=== PATIENT | male | born 2005 | race Caucasian/White ===

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

== ENCOUNTER 2024-01-08 18:29 | Emergency (ER) | payer OTHER ==
[2024-01-08 18:49] VITALS: TEMP 98
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
--- NOTE | 2024-01-08 20:43 | CT ---
EXAMINATION TYPE: CT brain wo con CT DLP: 1233.4 mGycm, Automated exposure control for dose reduction was used. DATE OF EXAM: 01/08/2024 8:22 PM COMPARISON: None. CLINICAL INDICATION:Male, 18 years old with history of headache after fall. TECHNIQUE: Brain: Axial CT images of the brain were obtained with coronal and sagittal reformats created and rev iewed. Contrast used: None. Oral contrast used: None. FINDINGS: Brain: Extra-axial spaces: No abnormal extra-axial fluid collections. Ventricular system: Within normal limits Cerebral parenchyma: No acute intraparenchymal hemorrhage or mass effect. The martini-white junction is well differentiated. Cerebellum: Unremarkable. Mass effect: No evidence of midline shift. Intracranial vasculature: unremarkable Soft tissues: Normal. Calvarium/osseous structures: No depressed skull fracture. Paranasal sinuses and mastoid air cells: Clear. Visualized orbits: Orbital contents are intact. IMPRESSION: No acute intracranial process.
[2024-01-09 02:20] VITALS: RESP 16
[2024-01-09 02:23] VITALS: BP 121/68; PULSE 81
== END 2024-01-09 00:01 | disposition home or self-care (01) ==
LOC: EC 18:29
DX: S06.0XAA Concussion with loss of consciousness status unknown, initial encounter (principal); Z88.8 Allergy status to other drugs, medicaments and biological substances; W01.198A Fall on same level from slipping, tripping and stumbling with subsequent striking against other object, initial encounter
CPT/HCPCS: 70450; 99284

== ENCOUNTER 2024-07-19 19:30 | Inpatient (IN) | payer MEDICAID, OTHER ==
--- NOTE | 2024-07-19 20:25 | ED ---
Psych HPI - General Chief Complaint: Psychiatric Symptoms Stated Complaint: Petitioned,Mental Health Time Seen by Provider: 07/19/24 20:24 Source: patient, police, RN notes reviewed, old records reviewed Mode of arrival: ambulatory Limitations: no limitations - History of Present Illness Initial Comments: This is a 18-year-old male acute psychosis severe depression history of bipolar patient is making homicidal statements and sharing those messages MD Complaint: suicidal ideation (Homicidal thoughts), feels depressed -: days(s) Associated Psychiatric Symptoms: homicidal ideation Quality: constant Improves With: none Worsens With: none Associated Symptoms: denies other symptoms Treatments Prior to Arrival: placed on mental health hold - Related Data Previous Rx's Medication Instructions Recorded Amoxic-Pot Clav 875-125Mg 1 each PO Q12HR 4 Days #8 tab 07/27/24 [Augmentin 875-125] Ibuprofen [Motrin] 600 mg PO Q6HR PRN tab 07/27/24 hydrOXYzine pamoate [Vistaril] 50 mg PO DAILY PRN 15 Days #30 cap 07/27/24 prednisoLONE ACETATE 1% OPHTH 2 drops BOTH EYES QID ml 07/27/24 [Pred Forte 1%] risperiDONE [Uzedy] 50 mg SQ QMONTHLY #1 each 07/27/24 traZODone HCL [Desyrel] 50 mg PO HS PRN 30 Days #30 tab 07/27/24 Allergies Allergy/AdvReac Type Severity Reaction Status Date / Time divalproex sodium Allergy Unknown Verified 07/20/24 12:46 [From Depakote] lorazepam [From Ativan] Allergy Unknown Verified 07/20/24 12:46 quetiapine [From Seroquel] Allergy Unknown Verified 07/20/24 12:46 Review of Systems ROS Statement: Those systems with pertinent positive or pertinent negative responses have been documented in the HPI. ROS Other: All systems not noted in ROS Statement are negative. Past Medical History Additional Past Medical History / Comment(s): enuresis bipolar, autism History of Any Multi-Drug Resistant Organisms: None Reported Additional Past Surgical History / Comment(s): Wart removal,cait carpal tunnel, achilles tendon Past Psychological History: ADD/ADHD, Bipolar Smoking Status: Never smoker Past Alcohol Use History: None Reported Past Drug Use History: None Reported General Exam Limitations: no limitations General appearance: alert, in no apparent distress, anxious Head exam: Present: atraumatic, normocephalic, normal inspection Eye exam: Present: normal appearance, PERRL, EOMI. Absent: scleral icterus, conjunctival injection, periorbital swelling ENT exam: Present: normal exam, mucous membranes moist Neck exam: Present: normal inspection. Absent: tenderness, meningismus, lymphadenopathy Respiratory exam: Present: normal lung sounds bilaterally. Absent: respiratory distress, wheezes, rales, rhonchi, stridor Cardiovascular Exam: Present: regular rate, normal rhythm, normal heart sounds. Absent: systolic murmur, diastolic murmur, rubs, gallop, clicks GI/Abdominal exam: Present: soft, normal bowel sounds. Absent: distended, tenderness, guarding, rebound, rigid Extremities exam: Present: normal inspection, full ROM, normal capillary refill. Absent: tenderness, pedal edema, joint swelling, calf tenderness Back exam: Present: normal inspection Neurological exam: Present: alert, oriented X3, CN II-XII intact Psychiatric exam: Present: normal affect, normal mood Skin exam: Present: warm, dry, intact, normal color. Absent: rash Course Vital Signs 07/19/24 07/19/24 07/20/24 19:52 20:27 02:00 Temperature 98.4 F 98.4 F 97.2 F L Pulse Rate 62 74 Pulse Rate [ 85 Trekking Guide ] Respiratory 16 14 16 Rate Blood Pressure 186/47 136/70 Blood Pressure 136/73 [Right Arm] O2 Sat by Pulse 100 99 98 Oximetry - Reevaluation(s) Reevaluation #1: Medical records reviewed Reevaluation #2: Medically cleared for psychiatric evaluation Reevaluation #3: Was pt. sent in by a medical professional or institution (, PA, CLERK TELEGRAPH SERVICE, urgent care, hospital, or intermediate...) When possible be specific @ -no Did you speak to anyone other than the patient for history (EMS, parent, family, police, friend...)? What history was obtained from this source @ -no Did you review nursing and triage notes (agree or disagree)? Why? @ -agree Are old charts reviewed (outside hosp., previous admission, EMS record, old EKG, old radiological studies, urgent care reports/EKG's, intermediate records)? Report findings @ -yes Differential Diagnosis (chest pain, altered mental status, abdominal pain women, abdominal pain men, vaginal bleeding, weakness, fever, dyspnea, syncope, headache, dizziness, GI bleed, back pain, seizure, CVA, palpatations, mental health, musculoskeletal)? @ -prior EKG interpreted by me (3pts min.). @ -yes X-rays interpreted by me (1pt min.). @ -yes negative for acute disease CT interpreted by me (1pt min.). @ -no U/S interpreted by me (1pt. min.). @ -no What testing was considered but not performed or refused? (CT, X-rays, U/S, labs)? Why? @ -none What meds were considered but not given or refused? Why? @ -none Did you discuss the management of the patient with other professionals (professionals i.e. , PA, CLERK TELEGRAPH SERVICE, lab, RT, psych nurse, social science analyst, [facility] shift lead, teacher, lodge officer, caser in)? Give summary @ -no Was smoking cessation discussed for >3mins.? @ -no Was critical care preformed (if so, how long)? @ -no Were there social determinants of health that impacted care today? How? (Homelessness, low income, unemployed, alcoholism, drug addiction, tra nsportation, low edu. Level, literacy, decrease access to med. care, snf, rehab)? @ -none Was there de-escalation of care discussed even if they declined (Discuss DNR or withdrawal of care, Hospice)? DNR status @ -no What co-morbidities impacted this encounter? (DM, HTN, Smoking, COPD, CAD, [place], CVA, ARF, Chemo, Hep., AIDS, mental health diagnosis, sleep apnea, morbid obesity)? @ -none Was patient admitted / discharged? Hospital course, mention meds given and route, prescriptions, significant lab abnormalities, going to OR and other pertinent info. @ - 18 male to ER for evaluation of psychiatric illness patient admitted for psychiatric evaluation and treatment For psychiatric evaluation bipolar psychosis Undiagnosed new problem with uncertain prognosis? @ -no Drug Therapy requiring intensive monitoring for toxicity (Heparin, Nitro, Insulin, Cardizem)? @ -no Were any procedures done? @ -no Diagnosis/symptom? @ - Acute, or Chronic, or Acute on Chronic? @ -Acute Uncomplicated (without systemic symptoms) or Complicated (systemic symptoms)? @ -Complicated Side effects of treatment? @ -no Exacerbation, Progression, or Severe Exacerbation? @ -exacerbation Poses a threat to life or bodily function? How? (Chest pain, [place], [place], pneumonia, PE, COPD, DKA, ARF, appy, cholecystitis, CVA, Diverticulitis, Homicidal, Suicidal, threat to staff... and all critical care pts) @ -yes psychiatric illness Reevaluation #4: Differential Mental Health Depression, anxiety, bipolar, psychosis, schizophrenia, borderline personality, situational depression, adjustment disorder, behavioral disorder, brain tumor, malingering, substance abuse, encephalopathy, medication reaction, dementia, hypothyroidism, degenerative neurologic disorder, lupus.... This is not meant to be all-inclusive list Medical Decision Making - Medical Decision Making 18 male to ER for evaluation of psychiatric illness patient admitted for psychiatric evaluation and treatment - Lab Data Result diagrams: 07/21/24 08:55 07/21/24 08:55 Lab Results 07/19/24 07/19/24 Range/Units 20:48 23:37 Urine Color Yellow Urine Appearance Clear (Clear) Urine pH 7.0 (5.0-8.0) Ur Specific [place] 1.028 (1.001-1.035) Urine Protein Trace H (Negative) Urine Glucose (UA) Negative (Negative) Urine Ketones Negative (Negative) Urine Blood Negative (Negative) Urine Nitrite Negative (Negative) Urine Bilirubin Negative (Negative) Urine Urobilinogen 2.0 (<2.0) mg/dL Ur Leukocyte Esterase Negative (Negative) Urine Opiates Screen Not Detected (NotDetected) Ur Oxycodone Screen Not Detected (NotDetected) Urine Methadone Screen Not Detected (NotDetected) Ur Barbiturates Screen Not Detected (NotDetected) U Tricyclic Antidepress Not Detected (NotDetected) Ur Phencyclidine Scrn Not Detected (NotDetected) Ur Amphetamines Screen Not Detected (NotDetected) U Methamphetamines Scrn Not Detected (NotDetected) U Benzodiazepines Scrn Not Detected (NotDetected) Urine Cocaine Screen Not Detected (NotDetected) U Marijuana (THC) Screen Detected H (NotDetected) Influenza Type A (PCR) Not Detected (Not Detectd) Influenza Type B (PCR) Not Detected (Not Detectd) RSV (PCR) Not Detected (Not Detectd) SARS-CoV-2 (PCR) Not Detected (Not Detectd) Disposition Clinical Impression: Bipolar disorder, Depression, Suicidal ideation Disposition: TRANSFER TO PSYCH HOSP/UNIT Condition: Stable Is patient prescribed a controlled substance at d/c from ED?: No
[2024-07-19 20:59] LABS: Appearance,Urine Clear (Clear); Bilirubin,Urine Negative (Negative); Blood,Urine Negative (Negative); Color,Urine Yellow; Glucose,Urine (UA) Negative (Negative); Ketones,Urine Negative (Negative); Leukocyte Esterase,Urine Negative (Negative); Nitrite,Urine Negative (Negative); Protein,Urine Trace (Negative); Specific Gravity,Urine 1.028 (1.001-1.035)
[2024-07-19 21:11] LABS: Amphetamine Screen,Urine Not Detected (NotDetected); Barbiturate Screen,Urine Not Detected (NotDetected); Benzodiazepines Screen,Urine Not Detected (NotDetected); Cocaine Screen,Urine Not Detected (NotDetected); Methadone Screen, Urine Not Detected (NotDetected); Opiate Screen,Urine Not Detected (NotDetected); Oxycodone Screen, Urine Not Detected (NotDetected); Phencyclidine Screen,Urine Not Detected (NotDetected); Tricyclic Antidepressant,Urine Not Detected (NotDetected); Urn Cannabinoid Scrn Detected (NotDetected)
[2024-07-20 00:25] LABS: Influenza A Not Detected (Not Detectd); Influenza B Not Detected (Not Detectd); RSV Not Detected (Not Detectd)
[2024-07-20] MEDS ORDERED: LORazepam 1 MG TAB PO PRN (02:03)
[2024-07-20] MEDS ORDERED: MAGNESIUM HYDROXIDE 2,400 MG/30 ML CUP PO PRN (02:03)
[2024-07-20] MEDS ORDERED: LORazepam 2 MG/ML INJ IM PRN (02:03)
[2024-07-20] MEDS ORDERED: HALOPERIDOL LACTATE 5 MG/ML 1 ML VIAL IM PRN (02:03)
[2024-07-20] MEDS ORDERED: QUEtiapine 50 MG TAB PO PRN (02:14)
[2024-07-20] MEDS: diazePAM 5 MG TAB PO STA (03:35)
[2024-07-20] MEDS: HALOPERIDOL LACTATE 5 MG/ML 1 ML VIAL IM STA (03:36)
[2024-07-20] MEDS: NICOTINE 14MG/24HR PATCH TRANSDERM SCH (08:41)
[2024-07-20] MEDS: ACETAMINOPHEN TAB 325 MG TAB PO PRN (10:30)
--- NOTE | 2024-07-20 13:04 | P.HP ---
Psychiatric H&P - . H&P Date: 07/20/24 History & Physical: Allergies Allergy/AdvReac Type Severity Reaction Status Date / Time divalproex sodium Allergy Unknown Verified 07/20/24 12:46 From Depakote lorazepam from Ativan Allergy Unknown Verified 07/20/24 12:46 quetiapine from Seroquel Allergy Unknown Verified 07/20/24 12:46 Vital Signs Temp 97.2 F L 07/20/24 02:00 Pulse 85 07/20/24 02:00 Resp 16 07/20/24 02:00 BP 136/73 07/20/24 02:00 Pulse Ox 98 07/20/24 02:00 FiO2 Intake & Output 07/19/24 07/20/24 07/20/24 18:59 06:59 18:59 Weight 99.337 kg Laboratory Last Values Urine Color Yellow 07/19/24 20:48 Urine Appearance Clear (Clear) 07/19/24 20:48 Urine pH 7.0 (5.0-8.0) 07/19/24 20:48 Ur Specific Pep 1.028 (1.001-1.035) 07/19/24 20:48 Urine Protein Trace (Negative) H 07/19/24 20:48 Urine Glucose (UA) Negative (Negative) 07/19/24 20:48 Urine Ketones Negative (Negative) 07/19/24 20:48 Urine Blood Negative (Negative) 07/19/24 20:48 Urine Nitrite Negative (Negative) 07/19/24 20:48 Urine Bilirubin Negative (Negative) 07/19/24 20:48 Urine Urobilinogen 2.0 mg/dL (<2.0) 07/19/24 20:48 Ur Leukocyte Esterase Negative (Negative) 07/19/24 20:48 Urine Opiates Screen Not Detected (NotDetected) 07/19/24 20:48 Ur Oxycodone Screen Not Detected (NotDetected) 07/19/24 20:48 Urine Methadone Screen Not Detected (NotDetected) 07/19/24 20:48 Ur Barbiturates Screen Not Detected (NotDetected) 07/19/24 20:48 U Tricyclic Antidepress Not Detected (NotDetected) 07/19/24 20:48 Ur Phencyclidine Scrn Not Detected (NotDetected) 07/19/24 20:48 Ur Amphetamines Screen Not Detected (NotDetected) 07/19/24 20:48 U Methamphetamines Scrn Not Detected (NotDetected) 07/19/24 20:48 U Benzodiazepines Scrn Not Detected (NotDetected) 07/19/24 20:48 Urine Cocaine Screen Not Detected (NotDetected) 07/19/24 20:48 U Marijuana (THC) Screen Detected (NotDetected) H 07/19/24 20:48 Influenza Type A (PCR) Not Detected (Not Detectd) 07/19/24 23:37 Influenza Type B (PCR) Not Detected (Not Detectd) 07/19/24 23:37 RSV (PCR) Not Detected (Not Detectd) 07/19/24 23:37 SARS-CoV-2 (PCR) Not Detected (Not Detectd) 07/19/24 23:37 07/20/24 12:47 IDENTIFYING DATA: Patient is a 18-year-old male, currently single, has no kids, has a public guardian, collects SSI. He lives alone in an apartment HPI: Patient presented to the hospital yesterday, was evaluated by EPS nurse and according to note "Patient was brought in on court ordered petition and knot picker cloth order. Patient assessed in ER14 from [id number]. Patient verbalizes the police picked him up while he was sleeping and he does not know why he was brought in. Attempted to educate patient on petition and patient states "I don't care, I don't need to be here". Patient anxious, pacing the room, and hostile at this time. Patient denies suicidal ideations. Patient verbalizes homicidal ideations but denies specific target or plan. Patient denies hallucinations or paranoia. Patient verbalizes "fine" appetite and eats 2 meals per day. Patient verbalizes "alright" sleep, sleeping 4-6 hours. Per petition, patient making homicidal threats and sending text messages wanting to harm others. Per text message attached to knot picker cloth order, patient sent "I'm going to kill every last person in there if you don't answer my calls soon" and " Not just the workers either every body I mean everybody everybody's done lying to me and making secret deals behind my back to keep control over me", and "I will hurt or kill anybody who messes with me I don't care". Patient states to medical underwriter "I don't need to be here and anybody who assists in putting my in a mental morales is going to get killed"." Patient was seen today wandering the hallways agreeable to speak to medical underwriter. He claims that there was a misunderstanding for him being in the hospital. States that he does not know why there was a pickup order for him and the communication technician brought him here. States that the communication technician did not share exactly what was going on. He states that he believes that it was probably related to what happened "about a week ago" with regards to his mother. States that his mother probably called his public guardian to bring him into the hospital. States that he was "venting to my mother" and states that he texted her because she was preventing him from getting back into school. States that he has had a lot of issues with his mother over time. Claims that he believes that she is a "narcissist" and also is very "controlling". He was minimizing his need for medications, minimizing his need for hospitalization. Denies any current stressors. Minimizing his impulsivity issues and behavioral health problems. Not endorsing any paranoia at this time endorsing any problems with sleep or appetite. Patient denies any current suicidal or homicidal ideations intent or plan. At this time patient denies any auditory or visual hallucinations. Patient denies any flight of ideas racing thoughts and increased in goal directed behavior. Patient admits to using marijuana daily, denies any other recreational drug use PAST PSYCHIATRIC HISTORY: Patient has a history of reported autism, ADHD and bipolar disorder. He claims that he has been on several different medications in the past and is refusing any medications at this time. Claims that he has been admitted psychiatrically several times in the past, states that he does not know when his last hospitalization was possibly over 2 years ago. Patient denies any psychiatric outpatient follow-up his case has been closed at [facility]. Patient denies any history of suicide attempts in the past. PMH: as per ER note ALLERGIES: as per EMR CHEMICAL DEPENDENCY HISTORY: as per HPI FAMILY PSYCHIATRIC/SUBSTANCE USE HISTORY: Claims that his mother has "ADHD" SOCIAL HISTORY: Patient was born and raised in [place] then moved to [place]. States that he currently lives alone in an apartment, he has no kids, he is single, he has a public guardian, he collects SSI. He claims that he completed up to eighth grade and school is try to get back in the school now. Claims that he has gone to juvenile correction center several times for different charges including assault and domestic violence. MENTAL STATUS EXAM: General Appearance: Patient appears to be wearing sunglasses, stated age is alert, directable, and attempts to cooperate. Minimizing. Patient appears to have fair hygiene and grooming. Behavior: Patient is seated without any agitated behavior. Minimizing, guarded and evasive Speech: Patient's speech is fluent and nonpressured. [place], monotone Mood/Affect: Patient reports their mood is "just fine", affect is congruent and constricted. Suicidality/Homicidality: Patient denies having any homicidal ideation intent or plan. Denies any suicidal ideations intent or plan Perceptions: Patient denies any visual hallucinations and denies any auditory hallucinations Though content/process: Focused on discharge, minimizing his situation. Memory and concentration: AOX3, grossly intact for the purposes of this session. Can spell "WORLD" backwards Judgment and insight: Poor/impulsive STRENGTHS/WEAKNESSES: strength is that patient is resilient. Weakness is that patient has poor judgment and is impulsive has very poor insight INTELLECT: Average IMPRESSIONS: Mood disorder unspecified History of autism spectrum disorder History of ADHD cannabis use disorder PLAN: -Patient is admitted under involuntary status to MHU for stabilization of psychiatric symptoms and safety. Patient has not signed adult voluntary form and medication consent and is placed in patient's chart. A second certification was completed and along with petition will be filed for court. -Medications : Will start Invega p.o. 3 mg nightly for mood stabilization/aggression. Trazodone nightly as needed for insomnia. -Ativan and Haldol PRN for agitation/aggression -Will offer patient subtance use rehab -Patient was informed of the risks, benefits and side effects of the medication and patient verbally consented to taking the medications. Patient signed med consent form and was placed in chart. -Internal Medicine consult to perform medical evaluation and physical. -NRT -not needed as patient does not smoke -SW on board for discharge planning. Encourage patient to participate in groups to work on coping skills. Will await deferral and court date. 07/20/24 12:58 07/20/24 13:01
[2024-07-20] MEDS ORDERED: hydrOXYzine HCL 50 MG/ML 1 ML VIAL IM PRN (16:59)
[2024-07-20] MEDS: PALIPERIDONE 3 MG TAB.ER.24 PO SCH (20:16)
[2024-07-21 10:12] LABS: Basophils # (A) 0.1 k/uL (0-0.2); Basophils % (A) 1 %; Eosinophils # (A) 0.3 k/uL (0-0.7); Eosinophils % (A) 3 %; HCT 47.6 % (39.0-53.0); HGB 16.3 gm/dL (13.0-17.5); Lymphocytes # (A) 4.7 k/uL (1.0-4.8); Lymphocytes % (A) 48 %; MCH 31.7 pg (25.0-35.0); MCHC 34.2 g/dL (31.0-37.0); MCV 92.8 fL (80.0-100.0); Mean Platelet Volume 7.7; Monocytes # (A) 0.4 k/uL (0-1.0); Monocytes % (A) 4 %; Neutrophils # (A) 4.1 k/uL (1.3-7.7); Neutrophils % (A) 42 %; Platelet Count 344 k/uL (150-450); RBC 5.14 m/uL (4.30-5.90); RDW 12.1 % (11.5-15.5); WBC 9.6 k/uL (4.0-11.0)
[2024-07-21 10:29] LABS: African American GFR (CKD) >90 (>60 ml/min/1.73 sqM); Anion Gap 12 mmol/L; Blood Urea Nitrogen 11 mg/dL (9-20); Carbon Dioxide 26 mmol/L (22-30); Chloride 101 mmol/L (98-107); Glucose 109 mg/dL (74-99); Potassium 4.7 mmol/L (3.5-5.1); Sodium 139 mmol/L (137-145)
[2024-07-21 10:30] LABS: ALT 17 U/L (4-49); AST 22 U/L (17-59); Albumin 4.6 g/dL (3.5-5.0); Alkaline Phosphatase 72 U/L (38-126); Calcium 9.7 mg/dL (8.4-10.2); Non-African American GFR(CKD) >90 (>60 ml/min/1.73 sqM); Total Bilirubin 1.5 mg/dL (0.2-1.3); Total Protein 7.4 g/dL (6.3-8.2)
--- NOTE | 2024-07-21 11:22 | P.PN ---
Progress Note - Text Progress Note Date: 07/21/24 Interval History: Patient was seen today in group and was agreeable to speak to hand sign writer. Appears to be more social on the unit. Claims that he is doing "about the same" as yesterday. He states that he is learning different skills to help control his anger. Claims that his feet have been hurting and was requesting to have his shoes without the laces. States that he slept on and off last night. His appetite is improving mildly. Claims that he did not take the Invega last night and reported issues with swallowing pills. He was agreeable to try it with applesauce or pudding today. Claims that he is open to getting put on the long- acting injection. Has not spoken with his pump and blower operator yet. At this time he is denying any suicidal homicidal ideations intent or plan, denying any auditory or visual hallucinations. MENTAL STATUS EXAM: General Appearance: Patient appears to be wearing sunglasses, stated age is alert, directable, and attempts to cooperate. Minimizing. Patient appears to have fair hygiene and grooming. Behavior: Patient is seated without any agitated behavior. More cooperative today Speech: Patient's speech is fluent and nonpressured. [place], monotone, improving mildly Mood/Affect: Patient reports their mood is "fine", affect is congruent and constricted. Proving mildly Suicidality/Homicidality: Patient denies having any homicidal ideation intent or plan. Denies any suicidal ideations intent or plan Perceptions: Patient denies any visual hallucinations and denies any auditory hallucinations Though content/process: More goal oriented today more logical. Memory and concentration: AOX3, grossly intact for the purposes of this session Judgment and insight: Poor/impulsive, improving mildly IMPRESSIONS: Mood disorder unspecified History of autism spectrum disorder History of ADHD cannabis use disorder PLAN: -Patient is admitted under involuntary status to MHU for stabilization of psychiatric symptoms and safety. Patient has not signed adult voluntary form and medication consent and is placed in patient's chart. -Medications : Invega p.o. 3 mg nightly for mood stabilization/aggression, this can to be given with applesauce or pudding if needed. Trazodone nightly as needed for insomnia. And will be to transition patient onto long-acting i njection to help ensure compliance -Ativan and Haldol PRN for agitation/aggression -NRT -not needed as patient does not smoke -SW on board for discharge planning. Encourage patient to participate in groups to work on coping skills. Will await deferral and court date.
[2024-07-21] MEDS: IBUPROFEN 600 MG TAB PO PRN (15:30)
[2024-07-21] MEDS: MAG HYDROX/AL HYDROX/SIMETH 355 ML BOTTLE PO PRN (18:10)
--- NOTE | 2024-07-22 04:54 | P.CONS ---
History of Present Illness - Reason for Consult Consult date: 07/21/24 - History of Present Illness The patient is a 18-year-old male with a PMH of uveitis and bipolar disorder along with ADHD who had presented to the emergency room requesting assistance. The patient was admitted to mental health unit where he was seen and evaluated. Patient reports that he has no physical complaints at the time of interview although he does request his steroid eyedrops for his uveitis. Patient reports that he is normally patient reports that he is normally prescribed with him and that he denied any additional complaints. Denied experiencing chest discomfort, shortness of breath, fever, chills, cough, nausea, vomiting, abdominal pain, diarrhea. Patient does report recreational marijuana use but denied any additional illicit substance use. Denied tobacco or alcohol use. Review of systems: Pertinent positives and negatives as disc we need to verify the pharmacy.ussed in HPI, a complete review of systems was performed and all other systems are negative. Physical examination: General: non toxic, no distress, appears at stated age, obese Derm: no unusual rashes/lesions, no unusual ecchymoses, warm, dry Head: atraumatic, normocephalic, symmetric Eyes: EOMI, no lid lag, anicteric sclera ENT: Nose and ears atraumatic, no thrush, no pharyngeal erythema Neck: trachea midline, supple Mouth: no lip lesion, mucus membranes moist Cardiovascular: S1S2 reg, no murmur, no edema Lungs: CTA bilateral, no rhonchi, no rales , no accessory muscle use Abdominal: soft, nontender to palpation, no guarding Ext: no gross muscle atrophy, no contractures, Neuro: No gross focal neuro deficits noted Psych: Alert, oriented, appropriate affect Assessment: Marijuana abuse Mood disorder Uveitis, chronic Imaging: None performed Data Review: Reviewed with WBC count 9.6, hemoglobin 16.3, sodium 139, potassium 4.7, BUN 11, creatinine 0.76, glucose 109, urine toxicology positive for marijuana Plan: Advised on the importance of cessation from marijuana use Patient's home steroid eyedrops will be resumed in a.m. after confirming with pharmacy Defer management of mood disorder to primary psychiatry service Thank you for allowing us to participate in the care of this patient. We will follow peripherally. Do not hesitate to contact us with questions. Someone can be reached from the [facility] hospitalist group at all hours of the day at [phone]. Past Medical History Additional Past Medical History / Comment(s): enuresis, bipolar, autism History of Any Multi-Drug Resistant Organisms: None Reported Additional Past Surgical History / Comment(s): Wart removal, cait carpal tunnel, achilles tendon Past Psychological History: ADD/ADHD, Bipolar Smoking Status: Never smoker Past Alcohol Use History: None Reported Past Drug Use History: None Reported Medications and Allergies Home Medications Medication Instructions Recorded Confirmed Type No Known Home Medications 07/20/24 07/20/24 History Allergies Allergy/AdvReac Type Severity Reaction Status Date / Time divalproex sodium Allergy Unknown Verified 07/20/24 12:46 [From Depakote] lorazepam [From Ativan] Allergy Unknown Verified 07/20/24 12:46 quetiapine [From Seroquel] Allergy Unknown Verified 07/20/24 12:46 Physical Exam Vitals: Vital Signs Temp Pulse BP Pulse Ox 07/21/24 07:02 97.9 F 91 129/88 99 Results CBC & Chem 7: 07/21/24 08:55 07/21/24 08:55 Labs: Abnormal Lab Results - Last 24 Hours (Table) 07/21/24 Range/Units 08:55 Glucose 109 H (74-99) mg/dL Total Bilirubin 1.5 H (0.2-1.3) mg/dL
--- NOTE | 2024-07-22 11:34 | P.PN ---
Progress Note - Text Progress Note Date: 07/22/24 Interval History: Patient was seen today in the hallways and was agreeable to speak to mortgage loan underwriter in the office. Patient met with the waiter/waitress tourist class earlier today and signed the deferral, agreeing to treatment. Claims that he did refuse the Invega last night however states that he is willing to take it today but wants it scheduled during the day. He spoke about believing that he might have "OCD" and spoke about people leaving doors open. States that he is preferring to go on the long-acting injection of the medication before he leaves. Claims that his mood and anxiety are improving mildly. Continues to argue about the petition that his mother filled out and believes that the text messages that were printed off are untrue. Claims that he slept fairly last night has been going to groups interacting well with others. Has been eating well. Hygiene and grooming improving. At this time he is denying any suicidal homicidal ideations intent or plan, denying any auditory or visual hallucinations. MENTAL STATUS EXAM: General Appearance: Patient appears to be wearing sunglasses, stated age is alert, directable, and attempts to cooperate. Patient appears to have fair hygiene and grooming. Behavior: Patient is seated without any agitated behavior. More cooperative today mildly argumentative Speech: Patient's speech is fluent and nonpressured. [place], monotone, improving mildly Mood/Affect: Patient reports their mood is "alright", affect is congruent and constricted. improving mildly Suicidality/Homicidality: Patient denies having any homicidal ideation intent or plan. Denies any suicidal ideations intent or plan Perceptions: Patient denies any visual hallucinations and denies any auditory hallucinations Though content/process: More goal oriented today more logical. Memory and concentration: AOX3, grossly intact for the purposes of this session Judgment and insight: Poor/impulsive, improving mildly IMPRESSIONS: Mood disorder unspecified History of autism spectrum disorder History of ADHD cannabis use disorder PLAN: -Patient is admitted under involuntary status to MHU for stabilization of psychiatric symptoms and safety. Patient has not signed adult voluntary form and medication consent and is placed in patient's chart. -Medications : Invega p.o. 3 mg daily for mood stabilization/aggression, this can to be given with applesauce or pudding if needed. Trazodone nightly as needed for insomnia. And will be to transition patient onto long-acting injection to help ensure compliance -Ativan and Haldol PRN for agitation/aggression -NRT - not needed as patient does not smoke -SW on board for discharge planning. Encourage patient to participate in groups to work on coping skills. patient signed deferral with his waiter/waitress tourist class on 07/22 and agreeable to treatment. will need to transition onto GUTIÉRREZ, likely discharge next week
[2024-07-22] MEDS: prednisoLONE ACETATE 1% OPHTH DROPS 5 ML BTL BOTH EYES PRN ×2 (12:05→17:00)
[2024-07-22] MEDS: PALIPERIDONE 3 MG TAB.ER.24 PO SCH (12:06)
[2024-07-22] MEDS: prednisoLONE ACETATE 1% OPHTH DROPS 5 ML BTL BOTH EYES SCH (17:04)
--- NOTE | 2024-07-23 11:18 | P.PN ---
Progress Note - Text Progress Note Date: 07/23/24 Interval History: Patient was seen today in the hallways and was agreeable to speak to tag writer in the office. Patient has been interacting with others on the unit, going to groups. He states that he feels the Invega has been helping him, is trying to stay busy on the unit appears to be more future oriented today. Claims that he feels his mind has clear thoughts at this time. Continues to state that he is preferring to go on the long-acting injection of the medication before he leaves, we spoke about transitioning onto GUTIÉRREZ likely friday if continues to tolerate PO well. Claims that his mood and anxiety are improving mildly. Claims that he slept fairly last night has been going to groups interacting well with others. Has been eating well. Hygiene and grooming improving. does claim that after he takes the invega he feels a bit tired and would prefer to take at night time. At this time he is denying any suicidal homicidal ideations intent or plan, denying any auditory or visual hallucinations. has been taking the invega and not reporting any side effects MENTAL STATUS EXAM: General Appearance: Patient appears to be wearing sunglasses, stated age is alert, directable, and attempts to cooperate. Patient appears to have fair hygiene and grooming. Behavior: Patient is seated without any agitated behavior. More cooperative Speech: Patient's speech is fluent and nonpressured. [place], monotone, improving mildly Mood/Affect: Patient reports their mood is "good", affect is congruent and constricted. improving mildly Suicidality/Homicidality: Patient denies having any homicidal ideation intent or plan. Denies any suicidal ideations intent or plan Perceptions: Patient denies any visual hallucinations and denies any auditory hallucinations Though content/process: More goal oriented today more logical. Memory and concentration: AOX3, grossly intact for the purposes of this session Judgment and insight: Poor, improving mildly IMPRESSIONS: Mood disorder unspecified History of autism spectrum disorder History of ADHD cannabis use disorder PLAN: -Patient is admitted under involuntary status to MHU for stabilization of psychiatric symptoms and safety. Patient has not signed adult voluntary form and medication consent and is placed in patient's chart. -Medications : change Invega p.o. 3 mg qhs for mood stabilization/aggression, this can to be given with applesauce or pudding if needed. Trazodone nightly as needed for insomnia. will be to transition patient onto long-acting injection to help ensure compliance on friday, will give Uzedy. -Ativan and Haldol PRN for agitation/aggression -NRT - not needed as patient does not smoke -SW on board for discharge planning. Encourage patient to participate in groups to work on coping skills. patient signed deferral with his energy efficient site manager on 07/22 and agreeable to treatment. will need to transition onto GUTIÉRREZ on friday and likely discharge friday back home if patient is improving.
[2024-07-23] MEDS: PALIPERIDONE 3 MG TAB.ER.24 PO SCH (21:14)
[2024-07-23] MEDS: traZODone HCL 50 MG TAB PO PRN (23:55)
[2024-07-24] MEDS: hydrOXYzine pamoate 25 MG CAP PO PRN (00:48)
[2024-07-24] MEDS: haloperidoL 5 MG TAB PO PRN (01:26)
--- NOTE | 2024-07-24 12:27 | P.PN ---
Progress Note - Text Progress Note Date: 07/24/24 Dictation was produced using [employer] dictation software. Please excuse any grammatical, word or spelling errors. Interval history: Patient was seen in the hallway and was directable and agreeable to speak with the machine sign writer in the office for psychiatric follow-up. The pt states that he is feeling "very good" today. He states that his sleep was not that great last night and it was hard for him to fall a sleep, which he reported that to be a chronic issue. Reported that his average sleep at home is 4-6 hours, it is reported that he got 3 hours last night. He denied any current depression or anxiety which he rated both at 0 per 10. Denied any current suicidal, self-harm or homicidal thoughts or behavior. Reported that he has a long history of inpatient psychiatric hospitalization that started when he was young, reported that he went to [facility] in [place]. Reported that he used to have auditory and visual hallucination as well as homicidal thoughts almost all the time, reported that [facility]. Reported that he has been doing really well without hospitalization for the last 2 years. He states that he has been compliant with his medication, he denied any current side effects, denied any muscle stiffness, rigidity, abnormal movement, or drooling. Reported that he used to take long-acting injectable in the past however he could not remember the name. Reported that he is planning on taking a long-acting injectable prior to leaving the hospital to maintain compliance. He has been social with staff and peers, no issues of aggression or agitation reported. Per nursing report the patient was complaining of left great toe pain, his left big toe is swollen, red was blister forming, Pt. states he had some drainage and he has facial grimacing. Pt. states the toe had been crushed from a boot he wore after having achillies surgery last yr. in the spring time. Pt. states he had to have the nail partially removed. Sound group was contacted. MENTAL STATUS EXAM: General Appearance: Patient appears to be wearing sunglasses, stated age is alert, directable, and attempts to cooperate. Patient appears to have fair hygiene and grooming. Behavior: Patient is seated without any agitated behavior. More cooperative Speech: Patient's speech is fluent and nonpressured. [place], monotone, improving mildly Mood/Affect: Patient reports their mood is "very good", affect is congruent and constricted. improving mildly Suicidality/Homicidality: Patient denies having any homicidal ideation intent or plan. Denies any suicidal ideations intent or plan Perceptions: Patient denies any visual hallucinations and denies any auditory hallucinations Though content/process: More goal oriented today more logical. Memory and concentration: AOX3, grossly intact for the purposes of this session Judgment and insight: Poor, improving mildly IMPRESSIONS: Mood disorder unspecified History of autism spectrum disorder History of ADHD cannabis use disorder Assessment/Plan: Continue with current diagnosis. Patient continues to meet criteria for inpatient psychiatric admission for symptom stabilization and safety. Patient will be maintained on current psychotropic medication regimen, Invega 3 mg was switched to the nighttime on Friday, patient continued to agree to receive long-acting injectable prior to discharge, no medication changes today. Monitor for medication compliance and for any psychotropic medication side effects. Will continue to monitor ongoing response to treatment. Encouraged participation in milieu.
--- NOTE | 2024-07-24 14:18 | P.PN ---
Progress Note - Text Progress Note Date: 07/24/24 Subjective: Patient complaining of left great toe pain and swelling. He claims that he had Achilles tendon surgery about 1 year ago and has been wearing boots that are causing pain at the left great toe. Pain has been ongoing for about 4 months and slowly getting more swollen and red. Denies any fevers, chills. Denies any numbness or weakness. Pertinent positives and negatives as discussed above, a complete review of systems was performed and all other systems are negative. Vitals Signs Reviewed. General: Nontoxic, no distress, appears at stated age Derm: Warm, dry Head: Atraumatic, normocephalic, symmetric Eyes: EOMI, no lid lag, anicteric sclera Mouth: No lip lesion, mucus membranes moist Cardiovascular: S1S2 reg, no murmur Lungs: CTA bilateral, no rhonchi, no rales, no accessory muscle use Abdominal: Soft, nontender to palpation, no guarding, no appreciable or ganomegaly Ext: Left great toe erythematous, edematous, tender with boggy tissue on the plantar aspect. No drainage. Neuro: CN II-XI grossly intact, no focal neuro deficits Psych: Alert, oriented, appropriate affect Assessment and Plan: Left great toe cellulitis -X-rays pending -Started on oral Augmentin 875 every 12 hours for 7 days -Will consider orthopedic surgery consult if bony involvement noted on x-ray Thank you for allowing us to participate in the care of this pleasant patient. Do not hesitate to contact us with questions. Someone can be reached from the [facility] hospitalist group all hours of the day at [phone] or via perfect serve.
[2024-07-24] MEDS: AMOXIC-POT CLAV 875-125MG 1 EACH TAB PO SCH (14:33)
--- NOTE | 2024-07-24 15:01 | XR ---
EXAMINATION TYPE: XR foot complete LT DATE OF EXAM: 07/24/2024 2:53 PM COMPARISON: None. CLINICAL INDICATION: Male, 18 years old with history of great toe infection; [facility] TECHNIQUE: XR foot complete LT examined in the AP, oblique, and lateral projections. FINDINGS: Previous osteotomy of the calcaneus with 2 cannulated screws and no evidence of periprosthetic lucenc y. No acute fracture or dislocation. No focal osseous erosion or aggressive periosteal reaction. Tars al alignment appears maintained. No obvious soft tissue gas: IMPRESSION: No acute osseous abnormality. [facility], , 07/24/2024 2:59 PM
--- NOTE | 2024-07-25 08:54 | P.CNOR ---
History of Present Illness - [facility] Consult date: 07/25/24 Requesting physician: Cornell Alvarenga Consult reason: other (Left great toe infection) History of present illness: History of Presenting Illness Patient is a pleasant 18-year-old male who has a past medical history of bipolar disorder along with ADHD who had presented to the emergency room requesting assistance. Our services are consulted for left great toe infection. Patient seen and examined in the mental health unit. He states that he has been dealing with pain to his left great toe for a few weeks. He does report that he had a surgical procedure performed approximately 1 year ago that involved 2 screws into his heel. He states that he also has a history of ingrown toenail of this left great toe in the past. Patient states that he is independent. X-rays of the left foot taken on 07/24/2024 demonstrates a previous osteotomy of the calcaneus with 2 cannulated screws and no evidence of periprosthetic lucency. There is no acute fracture or dislocation. There is no focal osseous erosion or aggressive parosteal reaction. No acute osseous abnormality. Review of Systems Pertinent positives and negatives as discussed in HPI, a complete review of systems was performed and all other systems are negative. Physical Examination Left foot: Inspection: Negative for any open fractures or ecchymosis, the left great toe does present with erythema and edema, no active drainage Sensation: Sensation is equal, symmetric, bilaterally intact throughout the upper and lower extremities Palpation: There is tenderness to palpation of the left great toe due to infection Range of motion: Patient does have full range of motion bilateral upper and lower extremities on exam Neurovascular: Radial pulse intact, 2+ bilaterally. Cap refill under 3 seconds in digits upper extremities. Assessment Left great toe ingrown nail Left great toe infection Left great toe pain Plan At this time we do not recommend any emergent/urgent orthopedic surgical intervention. Discussed with patient that the infection is not involving his bone structure and that we will need to consult a mixed crop and livestock farm worker. 1. Consult placed to Mary Delvalle, Cash Application Representative and Foot/Ankle Specialist 2. Appreciate medical management 3. Pain management - Continue with Tylenol and Motrin, Utilize ice therapy 20min every hour as needed. 4. Hygiene: Keep left foot clean and dry. If necessary keep wrapped with gauze dressing. 6. PT/OT - weightbearing as tolerated. 7. Appreciate consult. I reviewed and discussed this case with my attending Dr. Morales, whom has reviewed this chart and films and is in agreement with assessment and plan of care as outlined above. I have personally seen and examined the patient, performed the documentation and the assessment and plan as written. Number of minutes spent on the visit: 30m. Past Medical History Additional Past Medical History / Comment(s): enuresis, bipolar, autism History of Any Multi-Drug Resistant Organisms: None Reported Additional Past Surgical History / Comment(s): Wart removal, cait carpal tunnel, achilles tendon Past Psychological History: ADD/ADHD, Bipolar Smoking Status: Never smoker Past Alcohol Use History: None Reported Past Drug Use History: None Reported Medications and Allergies Home Medications Medication Instructions Recorded Confirmed Type No Known Home Medications 07/20/24 07/20/24 History Allergies Allergy/AdvReac Type Severity Reaction Status Date / Time divalproex sodium Allergy Unknown Verified 07/20/24 12:46 [From Depakote] lorazepam [From Ativan] Allergy Unknown Verified 07/20/24 12:46 quetiapine [From Seroquel] Allergy Unknown Verified 07/20/24 12:46 Results - Labs Labs: H & H 07/21/24 Range/Units 08:55 Hgb 16.3 (13.0-17.5) gm/dL Hct 47.6 (39.0-53.0) % Result Diagrams: 07/21/24 08:55 07/21/24 08:55
--- NOTE | 2024-07-25 10:49 | P.PN ---
Progress Note - Text Progress Note Date: 07/25/24 Dictation was produced using [employer] dictation software. Please excuse any grammatical, word or spelling errors. Interval history: Patient was seen in his room and was directable and agreeable to speak with the communications writer in the office for psychiatric follow-up. The patient states that he is feeling good today, reported that he is still having a foot pain, reported that it is at 3-4/10, reported that medicine doctor saw him yesterday, and started him on antibiotic. He reported that depression and anxiety are at the low side, he rated depression at 1/10, and anxiety at 0/10. He denied any current suicidal, self-harm or homicidal thoughts or behavior, denied any auditory or visual hallucination. Reported that his sleep was on and off last night mainly due to the pain and elaborates that usually sleep not great in general, however it is reported as 7 hours last night. He admitted to good appetite. Reported that he is compliant with his medication, denied any current side effects, denied any muscle stiffness, rigidity, abnormal movement, or drooling. No issues of aggression or agitation reported, getting along well with everyone in the unit. Patient reported that he lives by himself with multiple roommate and planning to go back to the same apartment, reported that he does not talk to his family, reported that he did not have any outpatient services and is planning to go back to be with [facility]. Patient was encouraged to make sure to keep his outpatient appointments. MENTAL STATUS EXAM: General Appearance: Patient appears to be wearing sunglasses, stated age is alert, directable, and attempts to cooperate. Patient appears to have fair hygiene and grooming. Behavior: Patient is seated without any agitated behavior. More cooperative Speech: Patient's speech is fluent and nonpressured. [place], monotone, improving mildly Mood/Affect: Patient reports their mood is "good", affect is congruent and constricted. improving mildly Suicidality/Homicidality: Patient denies having any homicidal ideation intent or plan. Denies any suicidal ideations intent or plan Perceptions: Patient denies any visual hallucinations and denies any auditory hallucinations Though content/process: More goal oriented today more logical. Memory and concentration: AOX3, grossly intact for the purposes of this session Judgment and insight: Poor, improving mildly IMPRESSIONS: Mood disorder unspecified History of autism spectrum disorder History of ADHD cannabis use disorder Assessment/Plan: Continue with current diagnosis. Patient continues to meet criteria for inpatient psychiatric admission for symptom stabilization and safety. Patient will be maintained on current psychotropic medication regimen, Invega 3 mg was switched to the nighttime on Friday, patient continued to agree to receive long-acting injectable prior to discharge, he is tolerating the medication well, no medication changes today. Monitor for medication compliance and for any psychotropic medication side effects. Will continue to monitor ongoing response to treatment. Encouraged participation in milieu. The patient was started on oral Augmentin 875 every 12 hours for 7 days for left great toe cellulitis, orthopedic surgery was consulted and they did not recommend any emergent/urgent orthopedic surgical intervention.
[2024-07-25 18:47] LABS: Influenza A Not Detected (Not Detectd); Influenza B Not Detected (Not Detectd); RSV Not Detected (Not Detectd)
--- NOTE | 2024-07-26 07:32 | P.CON ---
Consult Note - . Consult date: 07/26/24 Assessment/Plan:: Chief complaint: Ingrown toenail left great toe HPI: Patient is verbal but does not have much to say. He does note that he has had ingrown toenail for many months. He cannot recollect when it started. He said drainage for quite some time. He is on an antibiotic while in the hospital. He states he is never been able to get this treated. He is unable to rate his pain but does state is very painful. He denies any other constituti onal symptoms today. He was seen on the psych floor today nursing bedside. Physical exam: Vascular: DP and PT pulse are 2 out of 4 to bilateral foot. CFT less than 3 seconds to all digits. Hair growth to the level of the digits. Edema and erythema appreciated to the medial border of the left great toe. Derm: Ingrowing border to the medial border of the left great toe with purulence expressed. Erythema and infectious paronychia noted. Neuro: Intact to light touch sensation to the level of the digits bilateral. MSK: Pain with palpation to the left great toe with most specific pain to the medial border with ingrowing infectious border is noted. No pain with palpation to any other sites of the foot. Calves are soft and supple. Assessment: 1. Ingrown toenail with paronychia left great toe 2. Cellulitis left great toe Plan: In-depth discussion with patient today regarding his clinical findings. Patient is interested in having the toenail removed. States this has bothered him for quite some time. Spoke with nursing team. They feel as though patient is currently mentally stable enough to tolerate a bedside procedure. We discussed the option of bedside procedure versus mild anesthesia. They feel as though he will tolerate this. They are going to have a discussion with him today regarding the details that I discussed with them. If patient seems to be coherent enough to amend to this procedure bedside and willing we will perform this procedure at bedside. My recommendation is for temporary partial avulsion of the medial border of the left great toe. Currently he is to remain on oral antibiotics. Nursing staff given my contact information. If patient is willing they will contact me today regarding details and we will plan for procedure in house. Mary Delvalle D.P.M., AACFAS [facility]
--- NOTE | 2024-07-26 11:48 | P.PN ---
Progress Note - Text Progress Note Date: 07/26/24 Interval History: Patient was seen today in the hallways and was agreeable to speak to ad writer in the office. He claims that overall he is feeling better and had a good weekend. he was seen interacting with other patients on the unit. He has been going to groups participating. Claims that he is doing better in terms of his mood and anxiety. Claims that he is having less racing thoughts today. No aggression or mood swings. States that he is tolerating the Invega fairly well. He spoke abo ut transitioning to a long-acting injection today which she is okay with. States that he has been having on and off sleep issues however did sleep better last night. He claims that he would like to try the trazodone for tonight. Has a fair appetite. Claims that he has been dealing with a toe infection for several months now, claims that he is on antibiotics which have been helping. Hygiene and grooming improving. at this time he is denying any suicidal homicidal ideations intent or plan, denying any auditory or visual hallucinations. has been taking the invega and not reporting any side effects MENTAL STATUS EXAM: General Appearance: Patient appears to be wearing sunglasses, stated age is alert, directable, and attempts to cooperate. Patient appears to have fair hygiene and grooming. Behavior: Patient is seated without any agitated behavior. More cooperative Speech: Patient's speech is fluent and nonpressured. [place], monotone, improving mildly Mood/Affect: Patient reports their mood is "good", affect is congruent and improving mildly Suicidality/Homicidality: Patient denies having any homicidal ideation intent or plan. Denies any suicidal ideations intent or plan Perceptions: Patient denies any visual hallucinations and denies any auditory hallucinations Though content/process: More goal oriented today more logical. More future oriented Memory and concentration: AOX3, grossly intact for the purposes of this session Judgment and insight: improving mildly IMPRESSIONS: Mood disorder unspecified History of autism spectrum disorder History of ADHD cannabis use disorder PLAN: -Patient is admitted under involuntary status to [facility] for stabilization of psychiatric symptoms and safety. Patient has not signed adult voluntary form and medication consent and is placed in patient's chart. -Medications : Discontinue Invega p.o. as patient will be receiving Uzedy SQ 50 mg IM today qmonthly, [facility] dose [facility] on [facility]. Trazodone 50 mg qhs nightly for insomnia -Ativan and Haldol PRN for agitation/aggression -NRT - not needed as patient does not smoke -SW on board for discharge planning. Encourage patient to participate in groups to work on coping skills. patient signed deferral with his superintendent system operation on 07/22 and agreeable to treatment. will need to transition onto GUTIÉRREZ today and likely discharge tomorrow back home.
[2024-07-26] MEDS: risperiDONE 100 MG/0.28 ML SYR (NO COST) SQ SCH (12:54)
[2024-07-26] MEDS: traZODone HCL 50 MG TAB PO SCH (20:41)
[2024-07-27 07:15] VITALS: BP 92/52; PULSE 45; RESP 14; TEMP 97.8
--- NOTE | 2024-07-27 10:54 | P.DS ---
Providers Date of admission: 07/20/24 01:16 Expected date of discharge: 07/27/24 Attending physician: Gadiel Ovalles MD Consults: 07/20/24 02:03 Consult Physician Routine Consulting Provider: Padmini Landa Consult Reason/Comments: Medical managment Do you want consulting provider notified?: Yes 07/24/24 14:28 Consult Physician Routine Consulting Provider: Yovany Morales Consult Reason/Comments: swollen infected great toe Left Do you want consulting provider notified?: Yes 07/25/24 08:52 Consult Physician Routine Consulting Provider: Mary Delvalle Consult Reason/Comments: Left Great Toe Infection/ Ingrown toenail Do you want consulting provider notified?: Yes Primary care physician: Stated None - Discharge Diagnosis(es) (1) Mood disorder Current Visit: Yes Status: Acute Priority: High (2) History of autism spectrum disorder Current Visit: Yes Status: Acute Priority: Medium (3) History of ADHD Current Visit: Yes Status: Acute Priority: Medium (4) Cannabis use disorder Current Visit: Yes Status: Acute Priority: Medium Hospital Course: Admission HPI: Admission note was completed by repairer typewriter "Patient is a 18-year-old male, currently single, has no kids, has a public guardian, collects SSI. He lives alone in an apartment. Patient presented to the hospital yesterday, was evaluated by EPS nurse and according to note "Patient was brought in on court ordered petition and orange picker machine operator order. Patient assessed in ER14 from [id number]. Patient verbalizes the police picked him up while he was sleeping and he does not know why he was brought in. Attempted to educate patient on petition and patient states "I don't care, I don't need to be here". Patient anxious, pacing the room, and hostile at this time. Patient denies suicidal ideations. Patient verbalizes homicidal ideations but denies specific target or plan. Patient denies hallucinations or paranoia. Patient verbalizes "fine" appetite and eats 2 meals per day. Patient verbalizes "alright" sleep, sleeping 4-6 hours. Per petition, patient making homicidal threats and sending text messages wanting to harm others. Per text message attached to orange picker machine operator order, patient sent "I'm going to kill every last person in there if you don't answer my calls soon" and " Not just the workers either everybody I mean everybody everybody's done lying to me and making secret deals behind my back to keep control over me", and "I will hurt or kill anybody who messes with me I don't care". Patient states to repairer typewriter "I don't need to be here and anybody who assists in putting my in a mental morales is going to get killed"." Patient was seen today wandering the hallways agreeable to speak to repairer typewriter. He claims that there was a misunderstanding for him being in the hospital. States that he does not know why there was a pickup order for him and the construction rep brought him here. States that the construction rep did not share exactly what was going on. He states that he believes that it was probably related to what happened "about a week ago" with regards to his mother. States that his mother probably called his public guardian to bring him into the hospital. States that he was "venting to my mother" and states that he texted her because she was preventing him from getting back into school. States that he has had a lot of issues with his mother over time. Claims that he believes that she is a "narcissist" and also is very "controlling". He was minimizing his need for medications, minimizing his need for hospitalization. Denies any current stressors. Minimizing his impulsivity issues and behavioral health problems. Not endorsing any paranoia at this time endorsing any problems with sleep or appetite. Patient denies any current suicidal or homicidal ideations intent or plan. At this time patient denies any auditory or visual hallucinations. Patient denies any flight of ideas racing thoughts and increased in goal directed behavior. Patient admits to using marijuana daily, denies any other recreational drug use" Hospital course: Upon admission to the unit patient was admitted involuntarily on a petition and certificate and a second certificate was completed and faxed to the courts. Patient ended up signing a deferral with the superintendent terminal and agreeing to treatment. Patient got along well with other patients on the unit and followed unit protocol. Patient was compliant with the medications and denied any side effects throughout hospital course. Patient was started on antibiotics by the medical team for infection in his foot. Patient was also restarted back on prednisolone eyedrops for uveitis. Patient was started on trazodone as needed nightly for insomnia, patient was also started on Invega 3 mg p.o. nightly for psychosis/mood stabilization. Patient was given Uzedy 50 mg SQ on 07/26 to help ensure compliance and will be due for next dose of /3 at [facility]. Patient spoke of his stressors and engaged in therapy both group and individual. Patient was also seen by medical team for history and physical exam. Throughout the course of the hospitalization patient gradually improved with regards to mood, aggression, anxiety, sleep and returned back to their baseline level of functioning. On the day of discharge patient denied any suicidal or homicidal ideations intent or plan denied any auditory or visual hallucinations. Patient endorsed wanting to live for their health and family. The patient denied any access to guns or weapons. Patient denied any paranoia and did not endorse any delusions. Patient does have a significant history of substance abuse and was counseled on abstaining from all substances including alcohol and marijuana. Patient elected to do outpatient substance use treatment program through their outpatient provider.. Patient was also counseled on the medications and need for regular compliance and was encouraged to follow-up with their outpatient appointment for mental health and also for primary care. Prior to discharge a family meeting/speak to the gaurdian and will be arranged by social media content specialist to answer any questions and ensure safety upon discharge incuding making sure that guns/weapons are either removed from the home or locked away. Mental status exam: General Appearance: Patient appears to be wearing glasses, stated age is alert, pleasant, and cooperative. Patient is in no acute distress and has improved hygiene and grooming Behavior: Patient is calmly seated without any agitated behavior. Speech: Patient's speech is fluent and nonpressured. Mood/Affect: Patient reports their mood is "good", affect is congruent and euthymic. Suicidality/Homicidality: Patient denies having any suicidal or homicidal ideation intent or plan. Perceptions: Patient denies any auditory or visual hallucinations. Though content/process: There is no evidence of any delusional thought content and thought process is linear and goal-directed. More future oriented Memory and concentration: AOX3, grossly intact for the purposes of this session. Can spell "WORLD" backwards correctly. Judgment and insight: Chronically poor, however has improved with guarded prognosis Impression: Mood disorder unspecified History of autism spectrum disorder History of ADHD Cannabis use disorder Plan: -Continue with discharge today as patient has improved and stabilized psychiatrically and is not currently an imminent threat to themself and/or others. Patient will remain at chronically elevated risk for harm to self and/or others due to their impulsivity, history of aggression and substance abuse. -Continue medications: Invega p.o. was discontinued. Patient was given Uzedy 50 mg SQ on 07/26 to help ensure compliance and will be due for next dose of /3 at [facility]. Trazodone 50 mg nightly as needed for insomnia. Vistaril 50 mg daily as needed for anxiety. -Patient was counseled on the need for medication compliance and appropriate follow-up at mental health and also primary care for medical issues. Patient verbalized understanding and agreed. -Social work to help coordinate patients discharge today. also to ensure safe home environment that guns/weapons are either removed from the home or locked away. Social work also to arrange for patients follow up appointments with [facility] for psychiatric care along with follow up with primary care provider. -Patient counseled on abstaining from recreational drugs and marijuana and alcohol. Was informed/educated on the adverse effects on their physical and mental health. Patient verbally agreed and understood. Patient was offered substance abuse treatment however declined at this time. -Patient was instructed to return to the hospital or seek immediate medical care if their psychiatric or medical symptoms do worsen or reoccur. Allergies Allergy/AdvReac Type Severity Reaction Status Date / Time divalproex sodium Allergy Unknown Verified 07/20/24 12:46 [From Depakote] lorazepam [From Ativan] Allergy Unknown Verified 07/20/24 12:46 quetiapine [From Seroquel] Allergy Unknown Verified 07/20/24 12:46 Laboratory Results WBC 9.6 k/uL (4.0-11.0) 07/21/24 08:55 RBC 5.14 m/uL (4.30-5.90) 07/21/24 08:55 Hgb 16.3 gm/dL (13.0-17.5) 07/21/24 08:55 Hct 47.6 % (39.0-53.0) 07/21/24 08:55 MCV 92.8 fL (80.0-100.0) 07/21/24 08:55 MCH 31.7 pg (25.0-35.0) 07/21/24 08:55 MCHC 34.2 g/dL (31.0-37.0) 07/21/24 08:55 RDW 12.1 % (11.5-15.5) 07/21/24 08:55 Plt Count 344 k/uL (150-450) 07/21/24 08:55 MPV 7.7 07/21/24 08:55 Neutrophils % 42 % 07/21/24 08:55 Lymphocytes % 48 % 07/21/24 08:55 Monocytes % 4 % 07/21/24 08:55 Eosinophils % 3 % 07/21/24 08:55 Basophils % 1 % 07/21/24 08:55 Neutrophils # 4.1 k/uL (1.3-7.7) 07/21/24 08:55 Lymphocytes # 4.7 k/uL (1.0-4.8) 07/21/24 08:55 Monocytes # 0.4 k/uL (0-1.0) 07/21/24 08:55 Eosinophils # 0.3 k/uL (0-0.7) 07/21/24 08:55 Basophils # 0.1 k/uL (0-0.2) 07/21/24 08:55 Sodium 139 mmol/L (137-145) 07/21/24 08:55 Potassium 4.7 mmol/L (3.5-5.1) 07/21/24 08:55 Chloride 101 mmol/L (98-107) 07/21/24 08:55 Carbon Dioxide 26 mmol/L (22-30) 07/21/24 08:55 Anion Gap 12 mmol/L 07/21/24 08:55 BUN 11 mg/dL (9-20) 07/21/24 08:55 Creatinine 0.76 mg/dL (0.66-1.25) 07/21/24 08:55 Est GFR (CKD-EPI)AfAm >90 (>60 ml/min/1.73 sqM) 07/21/24 08:55 Est GFR (CKD-EPI)NonAf >90 (>60 ml/min/1.73 sqM) 07/21/24 08:55 Glucose 109 mg/dL (74-99) H 07/21/24 08:[address] Glu mg/dL 105 mg/dL 07/21/24 08:55 Hemoglobin A1c 5.3 % (<=6.0) 07/21/24 08:55 Calcium 9.7 mg/dL (8.4-10.2) 07/21/24 08:55 Total Bilirubin 1.5 mg/dL (0.2-1.3) H 07/21/24 08:55 AST 22 U/L (17-59) 07/21/24 08:55 ALT 17 U/L (4-49) 07/21/24 08:55 Alkaline Phosphatase 72 U/L (38-126) 07/21/24 08:55 Total Protein 7.4 g/dL (6.3-8.2) 07/21/24 08:55 Albumin 4.6 g/dL (3.5-5.0) 07/21/24 08:55 TSH 1.040 mIU/L (0.465-4.680) 07/21/24 08:55 Urine Color Yellow 07/19/24 20:48 Urine Appearance Clear (Clear) 07/19/24 20:48 Urine pH 7.0 (5.0-8.0) 07/19/24 20:48 Ur Specific [place] 1.028 (1.001-1.035) 07/19/24 20:48 Urine Protein Trace (Negative) H 07/19/24 20:48 Urine Glucose (UA) Negative (Negative) 07/19/24 20:48 Urine Ketones Negative (Negative) 07/19/24 20:48 Urine Blood Negative (Negative) 07/19/24 20:48 Urine Nitrite Negative (Negative) 07/19/24 20:48 Urine Bilirubin Negative (Negative) 07/19/24 20:48 Urine Urobilinogen 2.0 mg/dL (<2.0) 07/19/24 20:48 Ur Leukocyte Esterase Negative (Negative) 07/19/24 20:48 Urine Opiates Screen Not Detected (NotDetected) 07/19/24 20:48 Ur Oxycodone Screen Not Detected (NotDetected) 07/19/24 20:48 Urine Methadone Screen Not Detected (NotDetected) 07/19/24 20:48 Ur Barbiturates Screen Not Detected (NotDetected) 07/19/24 20:48 U Tricyclic Antidepress Not Detected (NotDetected) 07/19/24 20:48 Ur Phencyclidine Scrn Not Detected (NotDetected) 07/19/24 20:48 Ur Amphetamines Screen Not Detected (NotDetected) 07/19/24 20:48 U Methamphetamines Scrn Not Detected (NotDetected) 07/19/24 20:48 U Benzodiazepines Scrn Not Detected (NotDetected) 07/19/24 20:48 Urine Cocaine Screen Not Detected (NotDetected) 07/19/24 20:48 U Marijuana (THC) Screen Detected (NotDetected) H 07/19/24 20:48 Influenza Type A (PCR) Not Detected (Not Detectd) 07/25/24 17:30 Influenza Type B (PCR) Not Detected (Not Detectd) 07/25/24 17:30 RSV (PCR) Not Detected (Not Detectd) 07/25/24 17:30 SARS-CoV-2 (PCR) Not Detected (Not Detectd) 07/25/24 17:30 Vital Signs Temp 97.8 F 07/27/24 06:50 Pulse 45 L 07/27/24 06:50 Resp 14 07/27/24 06:50 BP 92/52 07/27/24 06:50 Pulse Ox 99 07/27/24 06:50 FiO2 Patient Condition at Discharge: Stable Plan - Discharge Summary Discharge Rx Participant: Yes New Discharge Prescriptions: New Ibuprofen [Motrin] 600 mg PO Q6HR PRN tab PRN Reason: Moderate Pain (Scale 4 To 6) prednisoLONE ACETATE 1% OPHTH [Pred Forte 1%] 2 drops BOTH EYES QID ml risperiDONE [Uzedy] 50 mg SQ QMONTHLY #1 each hydrOXYzine pamoate [Vistaril] 50 mg PO DAILY PRN 15 Days #30 cap PRN Reason: Anxiety Amoxic-Pot Clav 875-125Mg [Augmentin 875-125] 1 each PO Q12HR 4 Days #8 tab traZODone HCL [Desyrel] 50 mg PO HS PRN 30 Days #30 tab PRN Reason: Insomnia Discharge Medication List Amoxic-Pot Clav 875-125Mg [Augmentin 875-125] 1 each PO Q12HR 4 Days #8 tab 07/27/24 [Rx] Ibuprofen [Motrin] 600 mg PO Q6HR PRN tab 07/27/24 [Rx] hydrOXYzine pamoate [Vistaril] 50 mg PO DAILY PRN 15 Days #30 cap 07/27/24 [Rx] prednisoLONE ACETATE 1% OPHTH [Pred Forte 1%] 2 drops BOTH EYES QID ml 07/27/24 [Rx] risperiDONE [Uzedy] 50 mg SQ QMONTHLY #1 each 07/27/24 [Rx] traZODone HCL [Desyrel] 50 mg PO HS PRN 30 Days #30 tab 07/27/24 [Rx] Follow up Appointment(s)/Referral(s): Mary Delvalle [Other] - 1-2 Days (New office Call once discharged for procedure appointment.) [facility] [REFERRING] - 1 Week Patient Instructions/Handouts: Bipolar Disorder (DC), Autism Spectrum Disorder (DC) Activity/Diet/Wound Care/Special Instructions: [facility] Discharge Info Avoid the use of street drugs and alcohol. Take all medications as prescribed. When you are in need of refills on your medications, please contact your outpatient medical provider and/or outpatient psychiatrist. Please go to your scheduled outpatient appointments for aftercare treatment. If symptoms return or become worse, call the crisis line at or and/or visit the nearest emergency room for assistance. National Suicide and Crisis Lifeline - call or text 988 Discharge Disposition: HOME SELF-CARE
== END 2024-07-27 14:07 | disposition home or self-care (01) | DRG 751 ==
LOC: EC 19:30 → EEVIPCON 07-20 01:16 → 3MHU 07-20 01:16
PROVIDERS: ADMIT Psychiatry & Neurology Psychiatry; ATTEND Psychiatry & Neurology Psychiatry
DX: F39 Unspecified mood [affective] disorder (principal); R45.850 Homicidal ideations; F31.9 Bipolar disorder, unspecified; F12.10 Cannabis abuse, uncomplicated; R45.851 Suicidal ideations; L03.032 Cellulitis of left toe; L60.0 Ingrowing nail; H20.10 Chronic iridocyclitis, unspecified eye; F41.9 Anxiety disorder, unspecified; F84.0 Autistic disorder; F90.9 Attention-deficit hyperactivity disorder, unspecified type; Z88.8 Allergy status to other drugs, medicaments and biological substances
CPT/HCPCS: 80053; 80306; 81003; 82075; 83036; 84443; 85025; 87636; 99285

== ENCOUNTER 2024-11-29 21:14 | Inpatient (IN) | payer MEDICAID, OTHER ==
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
[2024-11-30] MEDS ORDERED: MAGNESIUM HYDROXIDE 2,400 MG/30 ML CUP PO PRN (03:20)
[2024-11-30] MEDS ORDERED: hydrOXYzine HCL 50 MG/ML 1 ML VIAL IM PRN (03:20)
[2024-11-30] MEDS ORDERED: ZIPRASIDONE 20 MG VIAL IM PRN (03:20)
--- NOTE | 2024-11-30 07:05 | P.MDCNMH ---
History of Present Illness H&P Date: 11/30/24 19 year old male presented for mental health evaluation The patient currently denies any medical concerns , denies any fever, chills, cough, sore throat, chest pain , trouble breathing , nausea , vomiting, abd pain , changes in urinary or bowel habits. Patient denies any tobacco smoking and illicit drugs or alcohol review of systems Pertinent positives as noted in HPI. All other systems were reviewed and are negative on exam Constitutional: No acute distress Eyes: Anicteric sclerae, moist conjunctiva, Pupils equal round reactive to light Lungs: Clear to auscultation Clear to percussion Normal respiratory effort, no accessory muscle use Cardiovascular: Heart regular in rate and rhythm, No murmurs, gallops, or rubs No peripheral edema Abdominal: Soft Nontender, no guarding, rebound or rigidity Abdomen moving with respiration Normoactive bowel sounds Extremities: No clubbing Pedal pulses intact and symmetrical Radial pulses intact and symmetrical No calf tenderness Psychiatric: Alert and oriented to person, place and time Neuro Muscles Strength 5/5 in all 4 extremities Sensation to light touch grossly present throughout Past Medical History Additional Past Medical History / Comment(s): enuresis bipolar, autism History of Any Multi-Drug Resistant Organisms: None Reported Additional Past Surgical History / Comment(s): Wart removal,cait carpal tunnel, achilles tendon Smoking Status: Never smoker Medications and Allergies Home Medications Medication Instructions Recorded Confirmed Type Amoxic-Pot Clav 875-125Mg 1 each PO Q12HR 4 Days #8 tab 07/27/24 Rx [Augmentin 875-125] Ibuprofen [Motrin] 600 mg PO Q6HR PRN tab 07/27/24 Rx hydrOXYzine pamoate [Vistaril] 50 mg PO DAILY PRN 15 Days #30 cap 07/27/24 Rx prednisoLONE ACETATE 1% OPHTH 2 drops BOTH EYES QID ml 07/27/24 Rx [Pred Forte 1%] risperiDONE [Uzedy] 50 mg SQ QMONTHLY #1 each 07/27/24 Rx traZODone HCL [Desyrel] 50 mg PO HS PRN 30 Days #30 tab 07/27/24 Rx Allergies Allergy/AdvReac Type Severity Reaction Status Date / Time divalproex sodium Allergy Unknown Verified 11/29/24 21:31 [From Depakote] lorazepam [From Ativan] Allergy Unknown Verified 11/29/24 21:31 quetiapine [From Seroquel] Allergy Unknown Verified 11/29/24 21:31 Physical Exam Vitals: Vital Signs Temp Pulse Pulse Resp BP BP Pulse Ox 11/30/24 03:15 97.9 F 66 18 128/77 95 11/30/24 02:57 97.8 F 57 L 18 121/72 98 11/29/24 21:26 99.4 F 58 L 18 121/71 96 Intake and Output 11/29/24 11/30/24 11/30/24 22:59 06:59 14:59 Other: Weight 99.337 kg 95.3 kg Cranial Nerve Examination - Cranial Nerves Cranial Nerve II- Optic: Intact Cranial Nerve III- Oculomotor: Intact Cranial Nerve IV- Trochlear: Intact Cranial Nerve V- Trigeminal: Intact Cranial Nerve - Abducens: Intact Cranial Nerve VII- Facial: Intact Cranial Nerve VIII- Auditory: Intact Cranial Nerve IX- Glossopharyngeal: Intact Cranial Nerve X- Vagus: Intact Cranial Nerve XI- Accessory: Intact Cranial Nerve XII- Hypoglossal: Intact Assessment and Plan Assessment: suicidal ideation management per psych stable from medical stand point no labs available for review covid negative thank you for this consultation
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
[2024-11-30] MEDS: busPIRone HCl 10 MG TAB PO SCH (09:30)
[2024-11-30] MEDS: ZIPRASIDONE 20 MG CAP PO PRN (20:50)
[2024-11-30] MEDS: hydrOXYzine HCL 25 MG TAB PO PRN (23:27)
[2024-12-01 09:17] LABS: Basophils # (A) 0.06 10*3/uL (0.00-0.10); Basophils % (A) 0.8 %; Eosinophils # (A) 0.22 10*3/uL (0.04-0.35); Eosinophils % (A) 2.8 %; HCT 47.6 % (39.6-50.0); HGB 16.5 g/dL (13.0-17.0); Lymphocytes # (A) 3.31 10*3/uL (0.90-5.00); Lymphocytes % (A) 42.2 %; MCH 31.1 pg (27.0-32.0); MCHC 34.7 g/dL (32.0-37.0); MCV 89.8 fL (80.0-97.0); Mean Platelet Volume 9.7 fL (9.5-12.2); Monocytes # (A) 0.42 10*3/uL (0.20-1.00); Monocytes % (A) 5.4 %; Neutrophils # (A) 3.82 10*3/uL (1.80-7.70); Neutrophils % (A) 48.7 %; Platelet Count 310 10*3/uL (140-440); RDW 11.8 % (11.5-14.5); WBC 7.84 10*3/uL (4.50-10.00)
[2024-12-01 09:46] LABS: ALT 18 U/L (4-49); AST 20 U/L (17-59); African American GFR (CKD) >90 (>60 ml/min/1.73 sqM); Albumin 4.7 g/dL (3.5-5.0); Alkaline Phosphatase 61 U/L (38-126); Anion Gap 14 mmol/L; Bilirubin,Unconjugated 2.2 mg/dL (0.0-1.1); Blood Urea Nitrogen 12 mg/dL (9-20); Calcium 9.9 mg/dL (8.4-10.2); Carbon Dioxide 27 mmol/L (22-30); Chloride 99 mmol/L (98-107); Glucose 133 mg/dL (74-99); Non-African American GFR(CKD) >90 (>60 ml/min/1.73 sqM); Potassium 4.1 mmol/L (3.5-5.1); Sodium 140 mmol/L (137-145); Total Bilirubin 2.2 mg/dL (0.2-1.3); Total Protein 7.5 g/dL (6.3-8.2)
--- NOTE | 2024-12-01 13:50 | P.PN ---
Progress Note - Text Progress Note Date: 12/01/24 Chief complaint: HI/SI Interval History: Patient was seen wandering the hallways and was directable and agreeable to speak with music writer in the office. The patient notes that he did have a problem with another patient who was invading his private space but was able to voice to staff that they need to give the patient away from. He notes no side effects with the recently started BuSpar. He does note that he is feeling spaced out. He denies any suicidal or homicidal thoughts today. He notes that he is engaging in groups. He notes that his energy is good and his appetite is improving. He does have feelings of hopelessness. He describes mild depression and severe anxiety. We discussed possibility of going to crisis for 2 weeks prior to returning home to his mother to see if the BuSpar curtail some of his anger. The patient had noted that that might be good. Mental Status Exam: General Appearance: Patient appears to be stated age is alert, directable, and cooperative. Behavior: Patient is calmly seated without any agitated behavior. Speech: Patient's speech is fluent and nonpressured. Mood/Affect: Mood is improving mildly, affect is congruent and constricted. Suicidality/Homicidality: Patient denies having any suicidal or homicidal ideation intent or plan. Perceptions: Patient denies any visual hallucinations and denies any auditory hallucinations Though content/process: There is no evidence of any delusional thought content and thought process is linear and goal-directed. Memory and concentration: AOX3, grossly intact for the purposes of this session Judgment and insight: Improving mildly Diagnosis: Mood disorder unspecified Autism disorder Cannabis use disorder R/O Personality disorder Assessment: The patient appears to be stabilizing and less guarded when speaking to him. Resources for crisis management bed seems to be an appropriate decision due to the toxic relationship between the patient and his mother. It is felt once the BuSpar has started working and hopefully this will curtail his anger issues. Continue hospitalization for complete stabilization. PLAN: -Patient is admitted under involuntary status to MHU for stabilization of psychiatric symptoms and safety. Patient has not signed adult voluntary form and medication consent and is placed in patient's chart. A second certification was completed and along with petition will be filed for court. -Medications : Continue Abilify Maintena 300 mg IM every 4 weeks next injection 12/07/2024 for mood BuSpar 10 mg take 1 tablet by mouth twice daily for anger issues -Ativan and Haldol PRN for agitation/aggression Weight outside of normal intake. Does feel improvement with RN-forgot that he had obvious sign of hep C we will collect dyspnea. When you get it punched him here-Will offer patient subtance use rehab -Patient was informed of the risks, benefits and side effects of the medication and patient verbally consented to taking the medications. Patient signed med consent form and was placed in chart. -Internal Medicine consult to perform medical evaluation and physical. -NRT -not needed as patient does not smoke -SW on board for discharge planning. Encourage patient to participate in groups to work on coping skills. [Will await deferral and court date.
[2024-12-01 16:10] LABS: LDL Cholesterol,Calculated 44.4 mg/dL (0.0-131.0); VLDL Calculation 16.76 mg/dL (5.00-40.00)
[2024-12-01] MEDS: prednisoLONE ACETATE 1% OPHTH DROPS 5 ML BTL BOTH EYES SCH (17:14)
[2024-12-01] MEDS: ACETAMINOPHEN TAB 325 MG TAB PO PRN (20:59)
[2024-12-02] MEDS: IBUPROFEN 600 MG TAB PO PRN (12:44)
--- NOTE | 2024-12-02 13:10 | P.PN ---
Progress Note - Text Progress Note Date: 12/02/24 Chief complaint: Suicidal/homicidal Interval History: Patient was seen wandering the hallways and was directable and agreeable to speak with functional tester typewriters in the office. "I am doing great". The patient notes that he woke up on the "right side of bed". We discussed his housing situation and he is aware that his mother will not him back home. The patient denies any suicidal or homicidal ideations at this time. He notes that he has no depression or anxiety. He notes that his anger issues are under control. He denies any problems with sleep, energy, appetite or concentration. He has been attending groups. Mental Status Exam: General Appearance: Patient appears to be stated age is alert, directable, and cooperative. Behavior: Patient is calmly seated without any agitated behavior. Speech: Patient's speech is fluent and nonpressured. Mood/Affect: Mood is improving mildly, affect is congruent and constricted. Suicidality/Homicidality: Patient denies having any suicidal or homicidal ideation intent or plan. Perceptions: Patient denies any visual hallucinations and denies any auditory hallucinations Though content/process: There is no evidence of any delusional thought content and thought process is linear and goal-directed. Memory and concentration: AOX3, grossly intact for the purposes of this session Judgment and insight: Improving mildly Diagnosis: Mood disorder unspecified Autism disorder Cannabis use disorder R/O Personality disorder Assessment: Currently the patient notes that he is reacting to the medication that was given but it is felt that it is the situational environment that he is in. Mother has voiced that she does not want him back because she is fearful of him. At this time continue hospitalization for observation to see if patient starts getting angry again. PLAN: -Patient is admitted under involuntary status to MHU for stabilization of psyc hiatric symptoms and safety. Patient has not signed adult voluntary form and medication consent and is placed in patient's chart. A second certification was completed and along with petition will be filed for court. -Medications : Continue Abilify Maintena 300 mg IM every 4 weeks next injection 12/07/2024 for mood BuSpar 10 mg take 1 tablet by mouth twice daily for anger issues -Ativan and Haldol PRN for agitation/aggression Weight outside of normal intake. Does feel improvement with RN-forgot that he had obvious sign of hep C we will collect dyspnea. When you get it punched him here-Will offer patient subtance use rehab -Patient was informed of the risks, benefits and side effects of the medication and patient verbally consented to taking the medications. Patient signed med consent form and was placed in chart. -Internal Medicine consult to perform medical evaluation and physical. -NRT -not needed as patient does not smoke -SW on board for discharge planning. Encourage patient to participate in groups to work on coping skills.
[2024-12-03 01:09] LABS: Appearance,Urine Clear (Clear); Bilirubin,Urine Negative (Negative); Blood,Urine Negative (Negative); Glucose,Urine (UA) Negative (Negative); Ketones,Urine Negative (Negative); Leukocyte Esterase,Urine Negative (Negative); Nitrite,Urine Negative (Negative); Protein,Urine Negative (Negative); Urobilinogen,Urine <2.0 mg/dL (<2.0)
[2024-12-03 01:20] LABS: Color,Urine Light Yellow
[2024-12-03 01:21] LABS: Amphetamine Screen,Urine Not Detected (NotDetected); Barbiturate Screen,Urine Not Detected (NotDetected); Benzodiazepines Screen,Urine Not Detected (NotDetected); Cocaine Screen,Urine Not Detected (NotDetected); Methadone Screen, Urine Not Detected (NotDetected); Opiate Screen,Urine Not Detected (NotDetected); Oxycodone Screen, Urine Not Detected (NotDetected); Phencyclidine Screen,Urine Not Detected (NotDetected); Tricyclic Antidepressant,Urine Not Detected (NotDetected); Urn Cannabinoid Scrn Detected (NotDetected)
[2024-12-03] MEDS: MAG HYDROX/AL HYDROX/SIMETH 355 ML BOTTLE PO PRN (11:06)
--- NOTE | 2024-12-03 15:13 | P.PN ---
Progress Note - Text Progress Note Date: 12/03/24 Chief complaint: SI/HI Interval History: Patient was seen wandering the hallways and was directable and agreeable to speak with principal technical writer in the office. The patient presented to his office appointment somewhat upset and tearful. He notes that he went to group this morning and he started talking about doing things for other people and he noted that he became upset that he had not done much. Additionally, he notes that he wanted to go to the but his mother prevented him. At this point he started focusing on his mother more. He noted that his depression was 6/10 and his anxiety 7/10. He denied any suicidal or homicidal ideations. He notes that his sleep, energy were good. He notes that his appetite and concentration were decreased. We discussed his anger anger which he affirmed. He denied any side effects with the medication. Mental Status Exam: General Appearance: The patient presented his stated age was dressed appropriately and groomed. Behavior: The patient presented extremely emotional and upset. Speech: Patient's speech is fluent and nonpressured. Mood/Affect: Mood is mildly declined, affect is congruent and constricted. Suicidality/Homicidality: Patient denies having any suicidal or homicidal ideation intent or plan. Perceptions: Patient denies any visual hallucinations and denies any auditory hallucinations Though content/process: There is no evidence of any delusional thought content and thought process is linear and goal-directed. Memory and concentration: AOX3, grossly intact for the purposes of this session Judgment and insight: Improving mildly Diagnosis: Mood disorder unspecified Autism disorder Cannabis use disorder R/O Personality disorder Assessment: The patient seems very emotional at this point due to this the patient is not ready for discharge. Continue hospitalization to complete stabilization. PLAN: -Patient is admitted under involuntary status to MHU for stabilization of psychiatric symptoms and safety. Patient has not signed adult voluntary form and medication consent and is placed in patient's chart. A second certification was completed and along with petition will be filed for court. -Medications : Continue Abilify Maintena 300 mg IM every 4 weeks next injection 12/07/2024 for mood BuSpar 10 mg take 1 tablet by mouth twice daily for anger issues -Ativan and Haldol PRN for agitation/aggression Weight outside of normal intake. Does feel improvement with RN-forgot that he had obvious sign of hep C we will collect dyspnea. When you get it punched him here-Will offer patient subtance use rehab -Patient was informed of the risks, benefits and side effects of the medication and patient verbally consented to taking the medications. Patient signed med consent form and was placed in chart. -Internal Medicine consult to perform medical evaluation and physical. -NRT -not needed as patient does not smoke -SW on board for discharge planning. Encourage patient to participate in groups to work on coping skills.
--- NOTE | 2024-12-04 10:15 | P.PN ---
Progress Note - Text Progress Note Date: 12/04/24 Chief complaint: SI/HI Interval History: Patient was seen wandering the hallways and was directable and agreeable to speak with medical underwriter in the office. The patient notes that he feels he is doing "worse". He notes that he did not sleep well last night and had nightmares but cannot identify the subject. He notes when he has nightmares he has more feelings of loneliness, grief and abandonment. He notes that his energy has gone down to low and his appetite he only ate 1 bite of eggs at breakfast. He notes that his concentration is not there. He denies any feelings of anger. He continues to rate his depression 6/10 and his anxiety is 7/10 with 10 being worst. He notes that he still has pain regarding his carpal tunnel syndrome and arm. At this time patient denies any suicidal or homical ideations, intent or plan. Patient denies any auditory, visual hallucinations and denies any paranoia or delusions. Patient denies any side effects from the medications and has been compliant with meds. During the session we did discuss anger issues with anger being a secondary emotion of fear. We discussed his lack of control as his primary fear. Mental Status Exam: General Appearance: Patient presented his stated age, appropriately dressed and groomed Behavior: Patient appeared to be withdrawn but calm and relaxed when he sat. Speech: Patient's speech is fluent and nonpressured. Mood/Affect: Mood is doing worse, affect is congruent and constricted. Suicidality/Homicidality: Patient denies having any suicidal or homicidal ideation intent or plan. Perceptions: Patient denies any visual hallucinations and denies any auditory hallucinations Though content/process: There is no evidence of any delusional thought content and thought process is linear and goal-directed. Memory and concentration: AOX3, grossly intact for the purposes of this session Judgment and insight: Improving mildly Diagnosis: Mood disorder unspecified Autism disorder Cannabis use disorder R/O Personality disorder Assessment: The patient appears to be deteriorating either due to pain issues or since his injection is due on the and may be the effectiveness of the Abilify is starting to wear off. He felt that we will give him the injection today and start him on some pain medication such as Mobic. PLAN: -Patient is admitted under involuntary status to MHU for stabilization of psychiatric symptoms and safety. Patient has not signed adult voluntary form and medication consent and is placed in patient's chart. A second certification was completed and along with petition will be filed for court. -Medications : Give Abilify Maintena 300 mg IM every 4 weeks next injection 01/03/2025 for mood Continue BuSpar 10 mg take 1 tablet by mouth twice daily for anger issues Give Mobic 15 mg take 1 tablet by mouth once daily for pain. -Ativan and Haldol PRN for agitation/aggression -Patient was informed of the risks, benefits and side effects of the medication and patient verbally consented to taking the medications. Patient signed med consent form and was placed in chart. -Internal Medicine consult to perform medical evaluation and physical. -NRT -not needed as patient does not smoke -SW on board for discharge planning. Encourage patient to participate in groups to work on coping skills.
[2024-12-04] MEDS: MELOXICAM 7.5 MG TAB PO SCH (11:29)
[2024-12-04] MEDS: ARIPiprazole IM 400 MG VIAL (NO COST) PHARMACY STOCK IM ONE (11:33)
--- NOTE | 2024-12-05 09:13 | P.PN ---
Progress Note - Text Progress Note Date: 12/05/24 Chief complaint: SI/HI Interval History: Patient was seen wandering the hallways and was directable and agreeable to speak with quality analyst/technical writer in the office. The patient feels that he is doing better after receiving the injection yesterday. Overall he is feeling "good". He notes with the pain issues he took the meloxicam and it helped for 2 hours. He notes that his depression is 0/10 and his anxiety 1/10 today (yesterday depression 6/10, anxiety 7/10). He notes that he did not have any nightmares and he slept well last night. He denied any problems with overall energy, appetite or concentration. He wanted to discuss the anger issues and control issues. He notes that he has not thought process of all or nothing no great areas. He notes in 1 of those years he has his people trying to control him and that him losing control himself. He does not like authority. At this time patient denies any suicidal or homical ideations, intent or plan. Patient denies any auditory, visual hallucinations and denies any paranoia or delusions. Patient denies any side effects from the medications and has been compliant with meds. Mental Status Exam: General Appearance: Patient appears to be stated age is alert, directable, and cooperative. Behavior: Patient is calmly seated without any agitated behavior. Speech: Patient's speech is fluent and nonpressured. Mood/Affect: Mood is improving mildly, affect is congruent and constricted. Suicidality/Homicidality: Patient denies having any suicidal or homicidal ideation intent or plan. Perceptions: Patient denies any visual hallucinations and denies any auditory hallucinations Though content/process: There is no evidence of any delusional thought content and thought process is linear and goal-directed. Memory and concentration: AOX3, grossly intact for the purposes of this session Judgment and insight: Improving mildly Diagnosis: Mood disorder unspecified Autism disorder Cannabis use disorder R/O Personality disorder Assessment: The patient has responded well to injection of the Abilify. He started to process his anger issues. They are still waiting to find a place in order to prevent him from decompensating. PLAN: -Patient is admitted under involuntary status to [facility]HU for stabilization of psychiatric symptoms and safety. Patient has not signed adult voluntary form and medication consent and is placed in patient's chart. A second certification was completed and along with petition will be filed for court. -Medications : Given Abilify Maintena 300 mg IM every 4 weeks next injection 01/03/2025 for mood Continue BuSpar 10 mg take 1 tablet by mouth twice daily for anger issues Mobic 15 mg take 1 tablet by mouth once daily for pain. -Ativan and Haldol PRN for agitation/aggression -Patient was informed of the risks, benefits and side effects of the medication and patient verbally consented to taking the medications. Patient signed med consent form and was placed in chart. -Internal Medicine consult to perform medical evaluation and physical. -NRT -not needed as patient does not smoke -SW on board for discharge planning. Encourage patient to participate in groups to work on coping skills.
[2024-12-05] MEDS ORDERED: ALBUTEROL INHALER 60 PUFF/8 GM INHALER (MHU) INHALATION PRN (13:45)
[2024-12-05] MEDS ORDERED: MAGNESIUM HYDROXIDE 2,400 MG/30 ML CUP PO PRN (21:06)
[2024-12-06] MEDS: ACETAMINOPHEN TAB 325 MG TAB PO PRN (10:18)
--- NOTE | 2024-12-06 11:35 | P.PN ---
Progress Note - Text Progress Note Date: 12/06/24 Chief complaint: SI/HI Interval History: Patient was seen wandering the hallways and was directable and agreeable to speak with poem writer in the office. Patient presented today noting that things are going well. He denies any depression or anxiety and continues to improve. He notes that his sleep is good. He notes that his energy, appetite and concentration are good. We briefly discussed the subject of anger again the patient does have insight that his anger is out of control for the situation sometimes but he has had improvements over the years. At this time patient denies any suicidal or homical ideations, intent or plan. Patient denies any auditory, visual hallucinations and denies any paranoia or delusions. Patient denies any side effects from the medications and has been compliant with meds. Mental Status Exam: General Appearance: Patient appears to be stated age is alert, directable, and cooperative. Behavior: Patient is calmly seated without any agitated behavior. Speech: Patient's speech is fluent and nonpressured. Mood/Affect: Mood is improving mildly, affect is congruent and constricted. Suicidality/Homicidality: Patient denies having any suicidal or homicidal ideation intent or plan. Perceptions: Patient denies any visual hallucinations and denies any auditory hallucinations Though content/process: There is no evidence of any delusional thought content and thought process is linear and goal-directed. Memory and concentration: AOX3, grossly intact for the purposes of this session Judgment and insight: Improving mildly Diagnosis: Mood disorder unspecified Autism disorder Cannabis use disorder R/O Personality disorder Assessment: The patient appears to have stabilized again with the injection of Abilify. We discussed disposition at this point in seems like the only option is a intermediate. They are holding back his disability money at this time in order to try to find housing. PLAN: -Patient is admitted under involuntary status to [facility] for stabilization of psychiatric symptoms and safety. Patient has not signed adult voluntary form and medication consent and is placed in patient's chart. A second certification was completed and along with petition will be filed for court. -Medications : Given Abilify Maintena 300 mg IM every 4 weeks next injection 01/03/2025 for mood Continue BuSpar 10 mg take 1 tablet by mouth twice daily for anger issues Mobic 15 mg take 1 tablet by mouth once daily for pain. -Ativan and Haldol PRN for agitation/aggression -Patient was informed of the risks, benefits and side effects of the medication and patient verbally consented to taking the medications. Patient signed med consent form and was placed in chart. -Internal Medicine consult to perform medical evaluation and physical. -NRT -not needed as patient does not smoke -SW on board for discharge planning. Encourage patient to participate in groups to work on coping skills.
[2024-12-07] MEDS: MAG HYDROX/AL HYDROX/SIMETH 355 ML BOTTLE PO PRN (08:49)
--- NOTE | 2024-12-07 09:12 | P.PN ---
Progress Note - Text Progress Note Date: 12/07/24 Interval history: Patient was seen today for psychiatric follow-up. Patient was wandering the h allways after breakfast. Appears to have fair hygiene and grooming. He wanted to stand during the examination today. We spoke more about the demand for hearing which is going to take place tomorrow. Claims that he follow-up most likely consented in order. States that he feels on edge at times and irritable, however states that this is much better from before. Claims that he is okay continuing all of the medications. We spoke about different options for sleep and for impulsivity/agitation he was okay to try Vistaril as needed and clonidine. Also claims that he needs help with sleep. Claims that he has been eating well however claims that he does have a hiatal hernia which is causing acid reflux. At this time he is denying any suicidal or homicidal ideations intent or plan denying any auditory or visual hallucinations. Mental Status Exam: General Appearance: Patient appears to be stated age is alert, directable, and cooperative. Improving hygiene and grooming Behavior: Patient is calmly seated without any agitated behavior. Attempts to cooperate Speech: Patient's speech is fluent and nonpressured. Mood/Affect: Mood is improving mildly, affect is congruent and constricted. Suicidality/Homicidality: Patient denies having any suicidal or homicidal ideation intent or plan. Perceptions: Patient denies any visual hallucinations and denies any auditory hallucinations Though content/process: There is no evidence of any delusional thought content and thought process is linear and goal-directed. Memory and concentration: AOX3, grossly intact for the purposes of this session Judgment and insight: Poor, improving mildly Diagnosis: Mood disorder unspecified Autism disorder Cannabis use disorder R/O Personality disorder PLAN: -Patient is admitted under involuntary status to [facility] for stabilization of psychiatric symptoms and safety. Patient has not signed adult voluntary form and medication consent and is placed in patient's chart. demand for hearing scheduled for 12/08 -Medications : Given Abilify Maintena 300 mg IM every 4 weeks next injection 01/03/2025 for mood stabilization. increase BuSpar 15 mg take 1 tablet by mouth twice daily for anxiety added trazodone 50 mg qhs prn for insomnia/mood clonidine 0.1 bid scheduled for impulsivity/aggression. Mobic 15 mg take 1 tablet by mouth once daily for pain. -Ativan and Haldol PRN for agitation/aggression -NRT -not needed as patient does not smoke -SW on board for discharge planning. Encourage patient to participate in groups to work on coping skills. will await demand for hearing on 12/08 and likely disch arge afterwards tomorrow.
[2024-12-07] MEDS: PANTOPRAZOLE 40 MG TABLET PO SCH (09:16)
[2024-12-07] MEDS: cloNIDine HCL 0.1 MG TAB PO SCH (09:16)
[2024-12-07] MEDS: hydrOXYzine pamoate 25 MG CAP PO PRN (18:00)
[2024-12-07] MEDS ORDERED: traZODone HCL 50 MG TAB PO PRN (19:00)
[2024-12-07] MEDS: busPIRone HCl 5 MG TAB PO SCH (20:19)
[2024-12-07] MEDS ORDERED: cloNIDine HCL 0.1 MG TAB PO SCH (21:00)
[2024-12-08 11:03] VITALS: BP 128/76; PULSE 80; RESP 16; TEMP 97.8
--- NOTE | 2024-12-08 11:04 | P.DS ---
Providers Date of admission: 11/30/24 02:53 Expected date of discharge: 12/08/24 Attending physician: Gadiel Ovalles MD Consults: 11/30/24 03:20 Consult Physician Routine Consulting Provider: Royce Hoover Consult Reason/Comments: med H&P Do you want consulting provider notified?: Yes Primary care physician: Stated None - Discharge Diagnosis(es) (1) Mood disorder Current Visit: Yes Status: Acute Priority: High (2) Autism spectrum disorder Current Visit: Yes Status: Acute Priority: High (3) Cannabis use disorder Current Visit: Yes Status: Acute Priority: Medium (4) Personality disorder Current Visit: Yes Status: Acute Priority: Medium Hospital Course: Admission HPI: Admission note was completed by Dr Sanders "Patient is a 19-year-old male currently living with his mother and family, unemployed, collecting disability and currently not in a relationship. The patient presented to the hospital by walking noting that he was fearful that he was not doing well. The patient presented to the emergency room and UDS was positive for cannabis. He had voiced that he needed some help because either he was going to kill himself or harm his mother. The patient was well familiar to his service and the last admission was in July 2024. Speaking with the patient he notes that "I could not handle it anymore". He notes that his mother's been yelling out. He notes that he feels frustrated because he does not have a job and no access to his disability check. When asking him about suicide statements in the ER he notes I do not have suicidal thoughts I just feel like do not feel like being here. When asking about harming his mother he was ambiguous in replying noting that if he had to go back there he did do what he had to do. He notes that he does not have any problems depression or anxiety. He feels that his sleep is broken and notes that he has nightmares and does not feel rested. He notes that he has chronic fatigue. In talking about appetite the patient notes that he forgets to eat. He states that his concentration is good. He does note that sometimes he "disassociates" and goes to his dark place. He feels hopeless and has been crying. He has feelings of guilt and shame. He denies any access to guns." Hospital course: Upon admission to the unit patient was admitted involuntarily on an active deferral from a previous admission. Patient ended up signing a waive and consent to treatment order with his corporate attorney. Patient was initially irritable, anxious and agtated. However with time and treatment patient got along well with other patients on the unit and followed unit protocol. Patient was compliant with the medications and denied any side effects throughout hospital course. Patient was started on BuSpar 15 mg twice daily for anxiety, trazodone nightly as needed for insomnia, clonidine 0.1 mg twice daily for impulsivity/aggression. Patient was already on Abilify Maintenna 300 mg IM every 4 weeks, next injection will be due on 01/03/2025 at [facility]. Patient spoke of his stressors and engaged in therapy both group/activity therapy. Patient was also seen by medical team for history and physical exam. Throughout the course of the hospitalization patient gradually improved with regards to mood, anxiety, agitation/irritability, sleep and returned back to their baseline level of functioning. On the day of discharge patient denied any suicidal or homicidal ideations intent or plan denied any auditory or visual hallucinations. Patient endorsed wanting to live for their health and future. The patient denied any access to guns or weapons. Patient denied any paranoia and did not endorse any delusions. Patient does have a significant history of substance abuse and was counseled on abstaining from all substances including alcohol and marijuana. Patient elected to do outpatient substance use treatment program through their outpatient provider. Patient was also counseled on the medications and need for regular compliance and was encouraged to follow-up with their outpatient appointment for mental health and also for primary care. Patient is not allowed back home with his mother, he will be staying in a intermediate until he is found a apartment in the community by his guardian. Mental status exam: General Appearance: Patient appears to be stated age is alert, pleasant, and cooperative. Patient is in no acute distress and has improved hygiene and grooming Behavior: Patient is calmly seated without any agitated behavior. Speech: Patient's speech is fluent and nonpressured. Mood/Affect: Patient reports their mood is "better", affect is congruent and euthymic. Suicidality/Homicidality: Patient denies having any suicidal or homicidal ideation intent or plan. Perceptions: Patient denies any auditory or visual hallucinations. Though content/process: There is no evidence of any delusional thought content and thought process is linear and goal-directed. Memory and concentration: AOX3, grossly intact for the purposes of this session. Can spell "WORLD" backwards correctly. Judgment and insight: Chronically poor, however has improved with guarded prognosis Impression: Mood disorder unspecified Autism spectrum disorder Cannabis use disorder Personality disorder unspecified Plan: -Continue with discharge today as patient has improved and stabilized psychiatrically and is not currently an imminent threat to themself and/or others. Patient will remain at chronically elevated risk for harm to self and/or others due to their impulsivity and substance abuse. -Continue medications: patient is currently on on Abilify Maintenna 300 mg IM every 4 weeks, next injection will be due on 01/03/2025 at [facility]. BuSpar 15 mg twice daily for anxiety, clonidine 0.1 mg twice daily scheduled for impuls ivity/aggression. -Patient was counseled on the need for medication compliance and appropriate follow-up at mental health and also primary care for medical issues. Patient verbalized understanding and agreed. -Social work to help coordinate patients discharge today and help with arranging patient's stay at local intermediate. also to ensure safe home environment that guns/weapons are either removed from the home or locked away. Social work also to arrange for patients follow up appointments with [facility] for psychiatric care along with follow up with primary care provider. -Patient counseled on abstaining from recreational drugs and marijuana and alcohol. Was informed/educated on the adverse effects on their physical and mental health. Patient verbally agreed and understood. -Patient was instructed to return to the hospital or seek immediate medical care if their psychiatric or medical symptoms do worsen or reoccur. Allergies Allergy/AdvReac Type Severity Reaction Status Date / Time divalproex sodium Allergy Unknown Verified 11/29/24 21:31 [From Depakote] lorazepam [From Ativan] Allergy Unknown Verified 11/29/24 21:31 quetiapine [From Seroquel] Allergy Unknown Verified 11/29/24 21:31 Laboratory Results WBC 7.84 10*3/uL (4.50-10.00) 12/01/24 09:04 RBC 5.30 10*6/uL (4.40-5.60) 12/01/24 09:04 Hgb 16.5 g/dL (13.0-17.0) 12/01/24 09:04 Hct 47.6 % (39.6-50.0) 12/01/24 09:04 MCV 89.8 fL (80.0-97.0) 12/01/24 09:04 MCH 31.1 pg (27.0-32.0) 12/01/24 09:04 MCHC 34.7 g/dL (32.0-37.0) 12/01/24 09:04 Plt Count 310 10*3/uL (140-440) 12/01/24 09:04 MPV 9.7 fL (9.5-12.2) 12/01/24 09:04 Immature Gran % (Auto) 0.1 % 12/01/24 09:04 Neutrophils % 48.7 % 12/01/24 09:04 Lymphocytes % 42.2 % 12/01/24 09:04 Monocytes % 5.4 % 12/01/24 09:04 Eosinophils % 2.8 % 12/01/24 09:04 Basophils % 0.8 % 12/01/24 09:04 Immature Gran # 0.01 10*3/uL (0.00-0.04) 12/01/24 09:04 Neutrophils # 3.82 10*3/uL (1.80-7.70) 12/01/24 09:04 Lymphocytes # 3.31 10*3/uL (0.90-5.00) 12/01/24 09:04 Monocytes # 0.42 10*3/uL (0.20-1.00) 12/01/24 09:04 Eosinophils # 0.22 10*3/uL (0.04-0.35) 12/01/24 09:04 Basophils # 0.06 10*3/uL (0.00-0.10) 12/01/24 09:04 Sodium 140 mmol/L (137-145) 12/01/24 09:04 Potassium 4.1 mmol/L (3.5-5.1) 12/01/24 09:04 Chloride 99 mmol/L (98-107) 12/01/24 09:04 Carbon Dioxide 27 mmol/L (22-30) 12/01/24 09:04 Anion Gap 14 mmol/L 12/01/24 09:04 BUN 12 mg/dL (9-20) 12/01/24 09:04 Creatinine 0.80 mg/dL (0.66-1.25) 12/01/24 09:04 Est GFR (CKD-EPI)AfAm >90 (>60 ml/min/1.73 sqM) 12/01/24 09:04 Est GFR (CKD-EPI)NonAf >90 (>60 ml/min/1.73 sqM) 12/01/24 09:04 Glucose 133 mg/dL (74-99) H 12/01/24 09:[address] Glu mg/dL 103 mg/dL 12/01/24 09:04 Hemoglobin A1c 5.2 % (<=6.0) 12/01/24 09:04 Calcium 9.9 mg/dL (8.4-10.2) 12/01/24 09:04 Total Bilirubin 2.2 mg/dL (0.2-1.3) H 12/01/24 09:04 Conjugated Bilirubin 0.0 mg/dL (0.0-0.3) 12/01/24 09:04 Unconjugated Bilirubin 2.2 mg/dL (0.0-1.1) H 12/01/24 09:04 Delta Bilirubin 0.0 mg/dL (0.0-0.2) 12/01/24 09:04 AST 20 U/L (17-59) 12/01/24 09:04 ALT 18 U/L (4-49) 12/01/24 09:04 Alkaline Phosphatase 61 U/L (38-126) 12/01/24 09:04 Total Protein 7.5 g/dL (6.3-8.2) 12/01/24 09:04 Albumin 4.7 g/dL (3.5-5.0) 12/01/24 09:04 Triglycerides 83.80 mg/dL (0.00-149.00) 12/01/24 09:04 Cholesterol 102.00 mg/dL (0.00-200.00) 12/01/24 09:04 LDL Cholesterol, Calc 44.4 mg/dL (0.0-131.0) 12/01/24 09:04 VLDL Cholesterol, Calc 16.76 mg/dL (5.00-40.00) 12/01/24 09:04 HDL Cholesterol 40.80 mg/dL (40.00-60.00) 12/01/24 09:04 Cholesterol/HDL Ratio 2.50 Ratio 12/01/24 09:04 TSH 0.968 mIU/L (0.465-4.680) 12/01/24 09:04 Urine Color Light Yellow 12/03/24 00:30 Urine Appearance Clear (Clear) 12/03/24 00:30 Urine pH 6.0 (5.0-8.0) 12/03/24 00:30 Ur Specific [place] 1.020 (1.001-1.035) 12/03/24 00:30 Urine Protein Negative (Negative) 12/03/24 00:30 Urine Glucose (UA) Negative (Negative) 12/03/24 00:30 Urine Ketones Negative (Negative) 12/03/24 00:30 Urine Blood Negative (Negative) 12/03/24 00:30 Urine Nitrite Negative (Negative) 12/03/24 00:30 Urine Bilirubin Negative (Negative) 12/03/24 00:30 Urine Urobilinogen <2.0 mg/dL (<2.0) 12/03/24 00:30 Ur Leukocyte Esterase Negative (Negative) 12/03/24 00:30 Urine Opiates Screen Not Detected (NotDetected) 12/03/24 00:30 Ur Oxycodone Screen Not Detected (NotDetected) 12/03/24 00:30 Urine Methadone Screen Not Detected (NotDetected) 12/03/24 00:30 Ur Barbiturates Screen Not Detected (NotDetected) 12/03/24 00:30 U Tricyclic Antidepress Not Detected (NotDetected) 12/03/24 00:30 Ur Phencyclidine Scrn Not Detected (NotDetected) 12/03/24 00:30 Ur Amphetamines Screen Not Detected (NotDetected) 12/03/24 00:30 U Methamphetamines Scrn Not Detected (NotDetected) 12/03/24 00:30 U Benzodiazepines Scrn Not Detected (NotDetected) 12/03/24 00:30 Urine Cocaine Screen Not Detected (NotDetected) 12/03/24 00:30 U Marijuana (THC) Screen Detected (NotDetected) H 12/03/24 00:30 SARS-CoV-2 (PCR) Not Detected (Not Detectd) 11/30/24 00:41 Vital Signs Temp 97.8 F 12/08/24 11:01 Pulse 80 12/08/24 11:01 Resp 16 12/08/24 11:01 BP 128/76 12/08/24 11:01 Pulse Ox 98 12/08/24 11:01 FiO2 Patient Condition at Discharge: Stable Plan - Discharge Summary Discharge Rx Participant: Yes New Discharge Prescriptions: New Pantoprazole [Protonix] 40 mg PO AC-BRKFST 30 Days #30 tab Acetaminophen Tab [Tylenol] 650 mg PO Q4HR PRN tab PRN Reason: Mild Pain (Scale 1 To 3) busPIRone HCL [Buspar] 15 mg PO BID 30 Days #120 tablet cloNIDine HCL [Catapres] 0.1 mg PO BID 30 Days #60 tab Meloxicam [Mobic] 15 mg PO DAILY 30 Days #60 tab hydrOXYzine pamoate [Vistaril] 50 mg PO DAILY PRN 30 Days #60 cap PRN Reason: Anxiety ARIPiprazole [Abilify Maintena] 300 mg PO QMONTHLY #1 each Continue Ibuprofen [Motrin] 600 mg PO Q6HR PRN tab PRN Reason: Moderate Pain (Scale 4 To 6) prednisoLONE ACETATE 1% OPHTH [Pred Forte 1%] 2 drops BOTH EYES QID 30 Days #1 ml Discontinued risperiDONE [Uzedy] 50 mg SQ QMONTHLY #1 each hydrOXYzine pamoate [Vistaril] 50 mg PO DAILY PRN 15 Days #30 cap PRN Reason: Anxiety Amoxic-Pot Clav 875-125Mg [Augmentin 875-125] 1 each PO Q12HR 4 Days #8 tab traZODone HCL [Desyrel] 50 mg PO HS PRN 30 Days #30 tab PRN Reason: Insomnia Discharge Medication List Ibuprofen [Motrin] 600 mg PO Q6HR PRN tab 07/27/24 [Rx] ARIPiprazole [Abilify Maintena] 300 mg PO QMONTHLY #1 each 12/08/24 [Rx] Acetaminophen Tab [Tylenol] 650 mg PO Q4HR PRN tab 12/08/24 [Rx] Meloxicam [Mobic] 15 mg PO DAILY 30 Days #60 tab 12/08/24 [Rx] Pantoprazole [Protonix] 40 mg PO AC-BRKFST 30 Days #30 tab 12/08/24 [Rx] busPIRone HCL [Buspar] 15 mg PO BID 30 Days #120 tablet 12/08/24 [Rx] cloNIDine HCL [Catapres] 0.1 mg PO BID 30 Days #60 tab 12/08/24 [Rx] hydrOXYzine pamoate [Vistaril] 50 mg PO DAILY PRN 30 Days #60 cap 12/08/24 [Rx] prednisoLONE ACETATE 1% OPHTH [Pred Forte 1%] 2 drops BOTH EYES QID 30 Days #1 ml 12/08/24 [Rx] Follow up Appointment(s)/Referral(s): [facility] [Outside] - 12/13/24 1:00 pm (12-13-24 at 1:00 with Kandi Cook 12/14 @ 15:[address] Arenas ) Camilo Long MD [STAFF PHYSICIAN] - 1-2 days Activity/Diet/Wound Care/Special Instructions: Avoid the use of street drugs and alcohol. Take all medications as prescribed. When you are in need of refills on your medications, please contact your medical provider and/or outpatient psychiatrist/provider to have this done. Please go to your scheduled outpatient appointment for aftercare treatment. If symptoms return or become worse, call the crisis line at and/or go to the nearest emergency room for evaluation. National Suicide Hotline [facility] [facility] confidentiality statement: "The information contained in this communication, including attachments, is confidential, may be privileged, and is intended only for the use of the named recipient(s). Unauthorized use, disclosure, forwarding or copying is strictly prohibited and may be unlawful. If you have received this communication in error, please notify me IMMEDIATELY at the phone number or pager listed above. Discharge Disposition: OTHER INSTITUTION NOT DEFINED
== END 2024-12-08 14:28 | disposition home or self-care (01) | DRG 753 ==
LOC: EC 21:14 → 3MHU 11-30 02:53
PROVIDERS: ADMIT Psychiatry & Neurology Psychiatry; ATTEND Psychiatry & Neurology Psychiatry
DX: F31.81 Bipolar II disorder (principal); F12.10 Cannabis abuse, uncomplicated; F41.9 Anxiety disorder, unspecified; F43.10 Post-traumatic stress disorder, unspecified; F60.9 Personality disorder, unspecified; F84.0 Autistic disorder; G56.00 Carpal tunnel syndrome, unspecified upper limb; R45.850 Homicidal ideations; R45.1 Restlessness and agitation; R45.851 Suicidal ideations; R53.82 Chronic fatigue, unspecified; Z56.0 Unemployment, unspecified; Z79.899 Other long term (current) drug therapy; Z91.51 Personal history of suicidal behavior; Z71.51 Drug abuse counseling and surveillance of drug abuser; Z88.8 Allergy status to other drugs, medicaments and biological substances; Z28.21 Immunization not carried out because of patient refusal; F90.9 Attention-deficit hyperactivity disorder, unspecified type
CPT/HCPCS: 80053; 80061; 80306; 81003; 82075; 82248; 83036; 84443; 85025; 87635; 99285

== ENCOUNTER 2025-01-12 20:22 | Emergency (ER) | payer OTHER ==
[2025-01-12 20:29] VITALS: BP 144/83; PULSE 58; TEMP 98.1
--- NOTE | 2025-01-12 21:25 | ED ---
Psych HPI - General Chief Complaint: Psychiatric Symptoms Stated Complaint: Mental health eval Time Seen by Provider: 01/12/25 20:30 Source: police Mode of arrival: ambulatory - History of Present Illness Initial Comments: 19-year-old male brought in for mental health evaluation. Patient was brought in on a pickup order, states that he is refusing his injections until he receives more money from his guardian. He denies any suicidal or homicidal ideation. He has no physical complaints today. - Related Data Previous Rx's Medication Instructions Recorded Ibuprofen [Motrin] 600 mg PO Q6HR PRN tab 07/27/24 ARIPiprazole [Abilify Maintena] 300 mg PO QMONTHLY #1 each 12/08/24 Acetaminophen Tab [Tylenol] 650 mg PO Q4HR PRN tab 12/08/24 Meloxicam [Mobic] 15 mg PO DAILY 30 Days #60 tab 12/08/24 Pantoprazole [Protonix] 40 mg PO AC-BRKFST 30 Days #30 tab 12/08/24 busPIRone HCL [Buspar] 15 mg PO BID 30 Days #120 tablet 12/08/24 cloNIDine HCL [Catapres] 0.1 mg PO BID 30 Days #60 tab 12/08/24 hydrOXYzine pamoate [Vistaril] 50 mg PO DAILY PRN 30 Days #60 cap 12/08/24 prednisoLONE ACETATE 1% OPHTH 2 drops BOTH EYES QID 30 Days #1 ml 12/08/24 [Pred Forte 1%] Allergies Allergy/AdvReac Type Severity Reaction Status Date / Time divalproex sodium Allergy Unknown Verified 01/12/25 20:29 [From Depakote] lorazepam [From Ativan] Allergy Unknown Verified 01/12/25 20:29 quetiapine [From Seroquel] Allergy Unknown Verified 01/12/25 20:29 Review of Systems ROS Statement: Those systems with pertinent positive or pertinent negative responses have been documented in the HPI. ROS Other: All systems not noted in ROS Statement are negative. Past Medical History Additional Past Medical History / Comment(s): enuresis bipolar, autism History of Any Multi-Drug Resistant Organisms: None Reported Additional Past Surgical History / Comment(s): Wart removal,cait carpal tunnel, achilles tendon Past Psychological History: ADD/ADHD, Bipolar Smoking Status: Never smoker Past Alcohol Use History: None Reported Past Drug Use History: None Reported General Exam Limitations: no limitations General appearance: alert, in no apparent distress Head exam: Present: atraumatic, normocephalic, normal inspection Eye exam: Present: normal appearance, EOMI Neck exam: Present: normal inspection. Absent: meningismus Respiratory exam: Absent: respiratory distress Extremities exam: Present: normal inspection, full ROM Neurological exam: Present: alert, oriented X3 Psychiatric exam: Present: flat affect Skin exam: Present: normal color Course Vital Signs 01/12/25 01/12/25 20:25 22:26 Temperature 98.1 F Pulse Rate 58 L Respiratory 18 16 Rate Blood Pressure 144/83 O2 Sat by Pulse 99 Oximetry Medical Decision Making - Medical Decision Making Was pt. sent in by a medical professional or institution (, PA, ASSURANCE ASSOCIATE, urgent care, hospital, or [facility]...) When possible be specific @ -No Did you speak to anyone other than the patient for history (EMS, parent, family, police, friend...)? What history was obtained from this source @ -No Did you review nursing and triage notes (agree or disagree)? Why? @ -I reviewed and agree with nursing and triage notes Were old charts reviewed (outside hosp., previous admission, EMS record, old EKG, old radiological studies, urgent care reports/EKG's, [facility] records)? Report findings @ -No old charts were reviewed Differential Diagnosis (chest pain, altered mental status, abdominal pain women, abdominal pain men, vaginal bleeding, weakness, fever, dyspnea, syncope, headache, dizziness, GI bleed, back pain, seizure, CVA, palpatations, mental health, musculoskeletal)? @ -Differential Mental Health Depression, anxiety, bipolar, psychosis, schizophrenia, borderline personality, situational depression, adjustment disorder, behavioral disorder, brain tumor, malingering, substance abuse, encephalopathy, medication reaction, dementia, hypothyroidism, degenerative neurologic disorder, lupus.... This is not meant to be all-inclusive list EKG interpreted by me (3pts min.). @ -As above X-rays interpreted by me (1pt min.). @ -None done CT interpreted by me (1pt min.). @ -None done U/S interpreted by me (1pt. min.). @ -None done What testing was considered but not performed or refused? (CT, X-rays, U/S, labs)? Why? @ -None What meds were considered but not given or refused? Why? @ -None Did you discuss the management of the patient with other professionals (professionals i.e. , PA, ASSURANCE ASSOCIATE, lab, RT, psych nurse, social work specialist, displayer merchandise, teacher, forestry technical officer, bottle caser)? Give summary @ -EPS nurse. States that she reviewed the records it appears that the patient received his injection yesterday, likely after the pickup order was filed. Was smoking cessation discussed for >3mins.? @ -No Was critical care preformed (if so, how long)? @ -No Were there social determinants of health that impacted care today? How? (Homelessness, low income, unemployed, alcoholism, drug addiction, transportation, low edu. Level, literacy, decrease access to med. care, senior living, rehab)? @ -No Was there de-escalation of care discussed even if they declined (Discuss DNR or withdrawal of care, Hospice)? DNR status @ -No What co-morbidities impacted this encounter? (DM, HTN, Smoking, COPD, CAD, Cancer, CVA, ARF, Chemo, Hep., AIDS, mental health diagnosis, sleep apnea, morbid obesity)? @ -None Was patient admitted / discharged? Hospital course, mention meds given and route, prescriptions, significant lab abnormalities, going to OR and other pertinent info. @ -19-year-old male here on a pickup order for refusing his medication. No suicidal or homicidal ideation. Medically cleared. Patient evaluated by EPS. It appears that the patient actually did receive his injection yesterday, likely after the pickup order was filed. EPS nurse recommends discharge home. Follow- up with PCP. Report back to ER with any new or worsening symptoms. I discussed this case in detail with my attending Dr. Ball Undiagnosed new problem with uncertain prognosis? @ -No Drug Therapy requiring intensive monitoring for toxicity (Heparin, Nitro, Insulin, Cardizem)? @ -No Were any procedures done? @ -No Diagnosis/symptom? @ -Mental health evaluation Acute, or Chronic, or Acute on Chronic? @ -Acute Uncomplicated (without systemic symptoms) or Complicated (systemic symptoms)? @ -Uncomplicated Side effects of treatment? @ -No Exacerbation, Progression, or Severe Exacerbation? @ -No Poses a threat to life or bodily function? How? (Chest pain, USA, [place], pneumonia, PE, COPD, DKA, ARF, appy, cholecystitis, CVA, Diverticulitis, Homicidal, Suicidal, threat to staff... and all critical care pts) @ -No Disposition Clinical Impression: Compliance with medication regimen Disposition: HOME SELF-CARE Condition: Good Additional Instructions: Follow up with [facility]. Report back to ER with any new or worsening symptoms Is patient prescribed a controlled substance at d/c from ED?: No Referrals: Nonstaff,Physician [Primary Care Provider] - 1-2 days Time of Disposition: 22:07
[2025-01-12 22:26] VITALS: RESP 16
== END 2025-01-12 22:26 | disposition home or self-care (01) ==
LOC: EC 20:22
DX: Z04.6 Encounter for general psychiatric examination, requested by authority (principal); Z91.148 Patient's other noncompliance with medication regimen for other reason; Z88.8 Allergy status to other drugs, medicaments and biological substances
CPT/HCPCS: 82075; 99284